=== PATIENT | male | born 1945 | race Caucasian/White ===

== ENCOUNTER 2016-12-03 18:18 | Inpatient (IN) | payer OTHER, MEDICARE ==
[2016-12-03] MEDS ORDERED: Sodium Chloride 0.9% 10 ML Syringe FLUSH PRN ×2 (19:17→23:26)
--- NOTE | 2016-12-03 19:19 | EDM.PDOC ---
ED HISTORY OF PRESENT ILLNESS - General Chief Complaint: Respiratory Problem Stated Complaint: [facility] Time Seen by Provider: 12/03/16 19:00 Source of Information: Reports: Family History Limitations: Reports: No limitations - History of Present Illness INITIAL COMMENTS - FREE TEXT/NARRATIVE: Patient presents via the [facility] for evaluation and treatment of shortness of breath. Patient does not provide any history. History is provided by his son and . They report that he has been more lethargic than normal. Today they noticed gargling and wheezing. He states that his oxygen sats at home was 73%. He is prescribed oxygen at home and instructed to use 1 L when he is up and active. They state that he normally is on 1 L at all times. They feel that the shortness of breath and gurgling increases when he lays flat. They have been encouraging him to sit and sleep in a chair, however, he does not comfortable and will lay flat. denies any fevers. They report that he has been complaining of some nausea and vomits occasionally after eating. He states that he did have some breakfast today but not much more intake besides that. He has not been responding normally per his family. patient has a past medical history of chronic kidney disease and liver failure. Family reports that he has a diagnosis of congestive heart failure. He receives Lasix on a necessary basis when his edema has increased. They did give him one dose of Lasix earlier this week. Patient sees and Dr. Vela for his liver and kidney failure. He has a voiced that he does not want dialysis. He is a DO NOT RESUSCITATE, DO NOT INTUBATE. Patient did have an influenza and pneumonia vaccine this year. Patient's primary care provider is Dr. Lopes. He is scheduled to see him on Sunday. - Related Data Allergies/ADRs: Allergies Allergy/AdvReac Type Severity Reaction Status Date / Time metronidazole Allergy Unknown Hives Verified 12/03/16 18:27 wool Allergy Unknown Itching Uncoded 07/26/16 15:31 Home Meds: Home Meds Furosemide [Lasix] 80 mg PO DAILY PRN 09/11/14 [History] LORazepam [Ativan] 0.5 mg PO BEDTIME 09/11/14 [History] Pantoprazole [Protonix] 40 mg PO DAILY 09/11/14 [History] Fluticasone Propionate [Flonase] 2 spray NS DAILY PRN 12/10/14 [History] Insulin Glarg,Human.Rec.Analog [Lantus] 10 unit SUBCUT BEDTIME 12/10/14 [History ] Potassium Chloride 20 meq PO DAILY 12/10/14 [History] Insulin Aspart [NovoLOG] 12 units SUBCUT TIDAC 04/15/15 [History] Lactulose [Cephulac] 45 ml PO TID 04/15/15 [History] Rifaximin [Xifaxan] 550 mg PO BID 04/15/15 [History] Salsalate 500 mg PO ASDIRECTED PRN 04/15/15 [History] Sertraline HCl 50 mg PO DAILY 04/15/15 [History] Ranitidine [Zantac] 150 mg PO BEDTIME 11/06/15 [History] Ferrous Sulfate 325 mg PO TID 12/03/16 [History] Ondansetron [IJD: Ondansetron ODT] 4 mg PO .EVERY 6 HOURS PRN 12/03/16 [History] hydrALAZINE [Apresoline] 25 mg PO Q12HR 12/03/16 [History] Past Medical History HEENT History: Reports: Hard of hearing Cardiovascular History: Reports: Heart murmur Respiratory History: Reports: Sleep apnea Gastrointestinal History: Reports: Cirrhosis, GERD, Other (see below) Other Gastrointestinal History: non-alcholic cirrhosis Genitourinary History: Reports: BPH, Chronic renal insuffiency, Renal calculus, Urinary incontinence Other Genitourinary History: kidney stones Other Musculoskeletal History: Broke both ankles previously Neurological History: Reports: Speech problems Psychiatric History: Reports: Anxiety, Depression Endocrine/Metabolic History: Reports: Diabetes, type II, Obesity/BMI 30+ Hematologic History: Reports: Anemia, Blood transfusion(s) Other Hematologic History: low hemoglobin, Dermatologic History: Reports: Other (see below) Other Dermatologic History: Nose and arm spots that were removed - Infectious Disease History Infectious Disease History: Reports: Chicken pox, Influenza - Past Surgical History HEENT Surgical History: Reports: Cataract surgery, Tonsillectomy GI Surgical History: Reports: Appendectomy, EGD Social & Family History - Family History Cardiac: Reports: Heart failure Respiratory: Reports: Other (see below) Other Respiratory Family Hisory: emphysema : Reports: Other (see below) Other Family History: kidney stones OBGYN: Reports: Psychiatric: Reports: Schizophrenia Endocrine/Metabolic: Reports: Diabetes, type II Oncologic: Reports: Breast Other Oncologic Family History: mother of breast cancer, aunts with cancer - Tobacco Use Smoking Status *Q: Never Smoker Second Hand Smoke Exposure: No - Caffeine Use Caffeine Use: Reports: Soda Other Caffeine Use: seldom - Alcohol Use Days Per Week of Alcohol Use: 0 - Recreational Drug Use Recreational Drug Use: No - Living Situation & Occupation Living situation: Reports: , with spouse, with family (Son) Occupation: retired ED ROS GENERAL - Review of Systems Review Of Systems: See Below Constitutional: Denies: fever Respiratory: Reports: Shortness of Breath Cardiovascular: Reports: Edema, Orthopnea. Denies: Chest pain GI/Abdominal: Reports: Nausea, Vomiting. Denies: Abdominal pain ED EXAM, GENERAL - Physical Exam Exam: See Below Exam Limited By: No limitations General Appearance: WD/WN, no apparent distress, lethargic Respiratory/Chest: no respiratory distress, decreased breath sounds, crackles ( bilateral bases) Cardiovascular: normal peripheral pulses, regular rate, rhythm, no murmur GI/Abdominal: soft, non tender Psychiatric: normal affect, normal mood Skin Exam: Warm, Dry, Normal color Course - Vital Signs Last Recorded V/S: Last Vital Signs Temp 36.2 C 12/04/16 04:16 Pulse 95 12/04/16 04:16 Resp 22 H 12/04/16 04:16 BP 171/69 H 12/04/16 09:58 Pulse Ox 94 L 12/04/16 05:12 - Orders/Labs/Meds Orders: Active Orders 24 hr Category Date Time Status Cardiac Monitoring [RC] . DIRECTED Care 12/03/16 19:17 Active Peripheral IV Care [RC] Q2HR Care 12/03/16 19:18 Active Sodium Chloride 0.9% [Saline Flush] Med 12/03/16 19:17 Active 10 ml FLUSH ASDIRECTED PRN Peripheral IV Insertion Adult [OM.PC] Routine Oth 12/03/16 19:17 Ordered Medication Orders Acetaminophen (Tylenol) 650 mg PO Q4H PRN PRN Reason: Pain (Mild 1-3)/fever Acetaminophen/Hydrocodone Bitart (Kamrar 325-5 Mg) 1 tab PO Q4H PRN PRN Reason: Pain (moderate 4-6) Albuterol/Ipratropium (Duoneb 3.0-0.5 Mg/3 Ml) 3 ml NEB Q4H PRN PRN Reason: Shortness Of Breath/wheezing Last Admin: 12/04/16 05:11 Dose: 3 ml Bisacodyl (Dulcolax) 5 mg PO DAILY PRN PRN Reason: Constipation Famotidine (Pepcid) 20 mg PO BEDTIME [facility] Ferrous Sulfate (Ferrous Sulfate) 325 mg PO TID [facility] Last Admin: 12/04/16 09:58 Dose: 325 mg Flunisolide (Nasalide Nasal Floral) 0 ml NASBOTH Q12H [facility] Last Admin: 12/04/16 01:37 Dose: 1 spray Hydralazine HCl (Apresoline) 25 mg PO Q12HR [facility] Last Admin: 12/04/16 09:58 Dose: 25 mg Hydralazine HCl (Apresoline) 20 mg IVPUSH Q4H PRN PRN Reason: Hypertension Last Admin: 12/04/16 02:08 Dose: 20 mg Promethazine HCl 12.5 mg/ (Sodium Chloride) 50.5 mls @ 100 mls/hr IV Q6H PRN PRN Reason: Nausea/Vomiting Furosemide 100 mg/ Sodium (Chloride) 100 mls @ 1 mls/hr IV TITRATE [facility] PRN Reason: Protocol Last Admin: 12/04/16 01:34 Dose: 1 mls/hr Levofloxacin/Dextrose 500 mg/ (Premix) 100 mls @ 100 mls/hr IV Q48H [facility] Piperacillin Sod/Tazobactam (Sod 4.5 gm/ Sodium Chloride) 100 mls @ 25 mls/hr IV Q12H [facility] Insulin Aspart (Novolog) 12 unit SUBCUT TIDAC [facility] Last Admin: 12/04/16 13:33 Dose: Admin: 12/04/16 09:59 Dose: 12 units Insulin Detemir (Levemir) 12 unit SUBCUT BEDTIME [facility] Lactulose (Cephulac) 30 gm PO QID [facility] Last Admin: 12/04/16 09:58 Dose: 30 gm Lorazepam (Ativan) 0.5 mg IV Q6H PRN PRN Reason: Anxiety Magnesium Sulfate (Pharmacy To Dose - Magnesium Replacement) 1 dose .XX ASDIRECTED [facility] Metoprolol Tartrate (Lopressor) 5 mg IVPUSH Q4H PRN PRN Reason: Tachycardia Morphine Sulfate (Morphine) 1 mg IVPUSH Q4H PRN PRN Reason: Pain (severe 7-10) Stop: 12/07/16 23:26 Ondansetron HCl (Zofran) 4 mg IV Q6H PRN PRN Reason: Nausea/Vomiting Ondansetron HCl (Zofran Odt) 4 mg PO .EVERY 6 HOURS PRN PRN Reason: Nausea Pantoprazole Sodium (Protonix) 40 mg PO DAILY@0800 [facility] Last Admin: 12/04/16 09:59 Dose: 40 mg Potassium Chloride (Klor-Con M20) 20 meq PO DAILY [facility] Last Admin: 12/04/16 10:00 Dose: Admin: 12/04/16 01:37 Dose: 20 meq Potassium Chloride (Pharmacy To Dose - Potassium Replacement) 1 dose .XX ASDIRECTED [facility] Rifaximin (Xifaxan) 550 mg PO BID [facility] Last Admin: 12/04/16 10:00 Dose: 550 mg Salsalate (Disalcid) 500 mg PO ASDIRECTED PRN PRN Reason: Headache Senna/Docusate Sodium (Senna Plus) 1 tab PO BID PRN PRN Reason: Constipation Sertraline HCl (Zoloft) 50 mg PO DAILY [facility] Last Admin: 12/04/16 09:58 Dose: 50 mg Sodium Chloride (Saline Flush) 10 ml FLUSH ASDIRECTED PRN PRN Reason: Keep Vein Open Last Admin: 12/03/16 19:45 Dose: 10 ml Sodium Chloride (Saline Flush) 10 ml FLUSH ASDIRECTED PRN PRN Reason: Keep Vein Open Labs: Laboratory Tests 12/03/16 12/03/16 12/03/16 Range/Units 19:38 19:38 19:38 WBC 11.26 H (4.23-9.07) K/mm3 RBC 2.81 L (4.63-6.08) M/mm3 Hgb 8.2 L (13.7-17.5) gm/L Hct 25.4 L (40.1-51.0) % MCV 90.4 (79.0-92.2) fl MCH 29.2 (25.7-32.2) pg MCHC 32.3 (32.2-35.5) g/dl RDW Std Deviation 52.7 H (35.1-43.9) fL Plt Count 222 (163-337) K/mm3 MPV 8.8 L (9.4-12.3) fl Neutrophils % (Manual) 83 H (40-60) % Band Neutrophils % 0 (0-10) % Lymphocytes % (Manual) 11 L (20-40) % Atypical Lymphs % 0 % Monocytes % (Manual) 3 (2-10) % Eosinophils % (Manual) 2 (0.8-7.0) % Basophils % (Manual) 1 (0.2-1.2) Platelet Estimate Adequate Hypochromasia 1+ slight Poikilocytosis 1+ slight Anisocytosis 2+ moderate Ovalocytes 2+ moderate RBC Morph Comment Not Reportable Sodium 143 (136-145) mEq/L Potassium 4.7 (3.5-5.1) mEq/L Chloride 111 H (98-107) mEq/L Carbon Dioxide 22 (21-32) mEq/L Anion Gap 14.7 (5-15) BUN 52 H (7-18) mg/dL Creatinine 4.8 H (0.7-1.3) mg/dL Est Cr Clr Drug Dosing TNP Estimated GFR (MDRD) 12 (>60) mL/min BUN/Creatinine Ratio 10.8 L (14-18) Glucose 109 (80-115) mg/dL Calcium 8.4 L (8.5-10.1) mg/dL Magnesium 2.2 (1.8-2.4) mg/dl Total Bilirubin 1.4 H (0.2-1.0) mg/dL AST 134 H (15-37) U/L ALT 36 (16-63) U/L Alkaline Phosphatase 112 (46-116) U/L Ammonia (11-32) umol/L Troponin I 0.668 H* (0.00-0.056) ng/mL C-Reactive Protein 4.5 H* (<1.0) mg/dL B-Natriuretic Peptide 2391 H (0-100) pg/mL Total Protein 6.0 L (6.4-8.2) g/dl Albumin 2.0 L (3.4-5.0) g/dl Globulin 4.0 gm/dL Albumin/Globulin Ratio 0.5 L (1-2) Urine Color (Yellow) Urine Appearance (Clear) Urine pH (5.0-8.0) Ur Specific Guion (1.005-1.030) Urine Protein (Negative) Urine Glucose (UA) (Negative) Urine Ketones (Negative) Urine Occult Blood (Negative) Urine Nitrite (Negative) Urine Bilirubin (Negative) Urine Urobilinogen (0.2-1.0) Ur Leukocyte Esterase (Negative) Urine RBC (0-5) /hpf Urine WBC (0-5) /hpf Ur Epithelial Cells (0-5) /hpf Amorphous Sediment (NOT SEEN) /hpf Urine Bacteria (FEW) /hpf Hyaline Casts (0-5) /lpf Urine Mucus (FEW) /hpf 12/03/16 12/03/16 Range/Units 19:38 21:10 WBC (4.23-9.07) K/mm3 RBC (4.63-6.08) M/mm3 Hgb (13.7-17.5) gm/L Hct (40.1-51.0) % MCV (79.0-92.2) fl MCH (25.7-32.2) pg MCHC (32.2-35.5) g/dl RDW Std Deviation (35.1-43.9) fL Plt Count (163-337) K/mm3 MPV (9.4-12.3) fl Neutrophils % (Manual) (40-60) % Band Neutrophils % (0-10) % Lymphocytes % (Manual) (20-40) % Atypical Lymphs % % Monocytes % (Manual) (2-10) % Eosinophils % (Manual) (0.8-7.0) % Basophils % (Manual) (0.2-1.2) Platelet Estimate Hypochromasia Poikilocytosis Anisocytosis Ovalocytes RBC Morph Comment Sodium (136-145) mEq/L Potassium (3.5-5.1) mEq/L Chloride (98-107) mEq/L Carbon Dioxide (21-32) mEq/L Anion Gap (5-15) BUN (7-18) mg/dL Creatinine (0.7-1.3) mg/dL Est Cr Clr Drug Dosing Estimated GFR (MDRD) (>60) mL/min BUN/Creatinine Ratio (14-18) Glucose (80-115) mg/dL Calcium (8.5-10.1) mg/dL Magnesium (1.8-2.4) mg/dl Total Bilirubin (0.2-1.0) mg/dL AST (15-37) U/L ALT (16-63) U/L Alkaline Phosphatase (46-116) U/L Ammonia 31 (11-32) umol/L Troponin I (0.00-0.056) ng/mL C-Reactive Protein (<1.0) mg/dL B-Natriuretic Peptide (0-100) pg/mL Total Protein (6.4-8.2) g/dl Albumin (3.4-5.0) g/dl Globulin gm/dL Albumin/Globulin Ratio (1-2) Urine Color Yellow (Yellow) Urine Appearance Clear (Clear) Urine pH 5.0 (5.0-8.0) Ur Specific Guion 1.015 (1.005-1.030) Urine Protein 2+ H (Negative) Urine Glucose (UA) Negative (Negative) Urine Ketones Negative (Negative) Urine Occult Blood 3+ H (Negative) Urine Nitrite Negative (Negative) Urine Bilirubin Negative (Negative) Urine Urobilinogen 0.2 (0.2-1.0) Ur Leukocyte Esterase Negative (Negative) Urine RBC >100 H (0-5) /hpf Urine WBC 0-5 (0-5) /hpf Ur Epithelial Cells 0-5 (0-5) /hpf Amorphous Sediment Few H (NOT SEEN) /hpf Urine Bacteria Few (FEW) /hpf Hyaline Casts 5-10 H (0-5) /lpf Urine Mucus Few (FEW) /hpf Meds: Medications Generic Name Dose Route Start Last Admin Trade Name Litoq PRN Reason Stop Dose Admin Acetaminophen 650 mg 12/03/16 23:22 Tylenol PO Q4H PRN Pain (Mild 1-3)/fever Acetaminophen/Hydrocodone Bitart 1 tab 12/03/16 23:22 Kamrar 325-5 Mg PO Q4H PRN Pain (moderate 4-6) Albuterol/Ipratropium 3 ml 12/03/16 23:26 12/04/16 05:11 Duoneb 3.0-0.5 Mg/3 Ml NEB 3 ml Q4H PRN Administration Shortness Of Breath/wheezing Bisacodyl 5 mg 12/03/16 23:26 Dulcolax PO DAILY PRN Constipation Famotidine 20 mg 12/04/16 21:00 Pepcid PO BEDTIME [facility] Ferrous Sulfate 325 mg 12/04/16 09:00 12/04/16 09:58 Ferrous Sulfate PO 325 mg TID [facility] Administration Flunisolide 0 ml 12/03/16 23:45 12/04/16 01:37 Nasalide Nasal Floral NASBOTH 1 spray Q12H BLADIMIR Administration Hydralazine HCl 25 mg 12/04/16 09:00 12/04/16 09:58 Apresoline PO 25 mg Q12HR BLADIMIR Administration Hydralazine HCl 20 mg 12/03/16 23:31 12/04/16 02:08 Apresoline IVPUSH 20 mg Q4H PRN Administration Hypertension Promethazine HCl 12.5 mg/ 50.5 mls @ 100 mls/hr 12/03/16 23:26 Sodium Chloride IV Q6H PRN Nausea/Vomiting Furosemide 100 mg/ Sodium 100 mls @ 1 mls/hr 12/03/16 23:45 12/04/16 01:34 Chloride IV 1 mls/hr TITRATE BLADIMIR Administration Protocol Levofloxacin/Dextrose 500 mg/ 100 mls @ 100 mls/hr 12/05/16 21:00 Premix IV Q48H [facility] Piperacillin Sod/Tazobactam 100 mls @ 25 mls/hr 12/05/16 02:00 Sod 4.5 gm/ Sodium Chloride IV Q12H [facility] Insulin Aspart 12 unit 12/04/16 07:00 12/04/16 13:33 Novolog SUBCUT Not Given TIDAC [facility] Insulin Detemir 12 unit 12/04/16 21:00 Levemir SUBCUT BEDTIME [facility] Lactulose 30 gm 12/04/16 09:00 12/04/16 09:58 Cephulac PO 30 gm QID [facility] Administration Lorazepam 0.5 mg 12/03/16 23:26 Ativan IV Q6H PRN Anxiety Magnesium Sulfate 1 dose 12/03/16 23:45 Pharmacy To Dose - Magnesium Replacement .XX ASDIRECTED [facility] Metoprolol Tartrate 5 mg 12/03/16 23:31 Lopressor IVPUSH Q4H PRN Tachycardia Morphine Sulfate 1 mg 12/03/16 23:22 Morphine IVPUSH 12/07/16 23:26 Q4H PRN Pain (severe 7-10) Ondansetron HCl 4 mg 12/03/16 23:26 Zofran IV Q6H PRN Nausea/Vomiting Ondansetron HCl 4 mg 12/03/16 23:29 Zofran Odt PO .EVERY 6 HOURS PRN Nausea Pantoprazole Sodium 40 mg 12/04/16 08:00 12/04/16 09:59 Protonix PO 40 mg DAILY@0800 BLAD[facility]IR Administration Potassium Chloride 20 meq 12/03/16 23:45 12/04/16 10:00 Klor-Con M20 PO Not Given DAILY [facility] Potassium Chloride 1 dose 12/03/16 23:45 Pharmacy To Dose - Potassium Replacement .XX ASDIRECTED [facility]AD[facility] Rifaximin 550 mg 12/04/16 09:00 12/04/16 10:00 Xifaxan PO 550 mg BID BLADIMIR Administration Salsalate 500 mg 12/03/16 23:29 Disalcid PO ASDIRECTED PRN Headache Senna/Docusate Sodium 1 tab 12/03/16 23:26 Senna Plus PO BID PRN Constipation Sertraline HCl 50 mg 12/04/16 09:00 12/04/16 09:58 Zoloft PO 50 mg DAILY [facility]AD[facility] Administration Sodium Chloride 10 ml 12/03/16 19:17 12/03/16 19:45 Saline Flush FLUSH 10 ml ASDIRECTED PRN Administration Keep Vein Open Sodium Chloride 10 ml 12/03/16 23:26 Saline Flush FLUSH ASDIRECTED PRN Keep Vein Open Discontinued Medications Generic Name Dose Route Start Last Admin Trade Name Freq PRN Reason Stop Dose Admin Furosemide 40 mg 12/03/16 19:36 12/03/16 19:45 Lasix IVPUSH 12/03/16 19:37 40 mg NOW ONE Administration Levofloxacin/Dextrose 250 mg/ 50 mls @ 50 mls/hr 12/04/16 01:30 12/04/16 01: 35 Premix IV 12/04/16 02:29 50 mls/hr ONETIME ONE Administration Sodium Chloride Confirm 12/04/16 01:20 12/04/16 01:35 Normal Saline Administered 12/04/16 01:21 10 ml Dose Administration 250 mls @ as directed .ROUTE .STK-MED ONE Piperacillin Sod/Tazobactam 100 mls @ 200 mls/hr 12/04/16 13:00 Sod 4.5 gm/ Sodium Chloride IV 12/04/16 13:29 ONETIME ONE Piperacillin Sod/Tazobactam 100 mls @ 25 mls/hr 12/04/16 01:00 Sod 4.5 gm/ Sodium Chloride IV Q12H [facility]AD[facility] Lactulose 30 gm 12/04/16 09:00 Cephulac PO TID BLADIMIR - Re-Assessments/Exams Free Text/Narrative Re-Assessment/Exam: 12/03/16 21:00 The patient's lab studies have returned. Reviewed the EKG, chest x-ray and labs with the patient and his family. I feel that his symptoms are likely from exacerbation of his congestive heart failure. Given his hypoxia and increased need for oxygen I feel that he requires admission. I discussed this with the patient and his family. His family is in agreement here. His relates that he is a DO NOT RESUSCITATE, DO NOT INTUBATE and does not want dialysis. I spoke with Dr. Brown, hospitalist promotions producer, agrees to accept the patient. He agrees to the admission. Hill be sent to the [facility] floor on telemetry. Departure - Departure Time of Disposition: 21:40 Disposition: Admitted As Inpatient 67 Condition: serious Clinical Impression: Congestive heart failure - My Orders Last 24 Hours: My Active Orders 12/03/16 19:17 Cardiac Monitoring [RC] . DIRECTED Sodium Chloride 0.9% [Saline Flush] 10 ml FLUSH ASDIRECTED PRN Peripheral IV Insertion Adult [OM.PC] Routine 12/03/16 19:18 Peripheral IV Care [RC] Q2HR - Assessment/Plan Last 24 Hours: My Active Orders 12/03/16 19:17 Cardiac Monitoring [RC] . DIRECTED Sodium Chloride 0.9% [Saline Flush] 10 ml FLUSH ASDIRECTED PRN Peripheral IV Insertion Adult [OM.PC] Routine 12/03/16 19:18 Peripheral IV Care [RC] Q2HR
[2016-12-03] MEDS ORDERED: Furosemide 40 MG/4 ML VIAL IVPUSH ONE (19:36)
--- NOTE | 2016-12-03 23:14 | PCM.HP ---
H&P History of Present Illness - General Date of Service: 12/03/16 Admit Problem/Dx: Admission Diagnosis/Problem Admission Diagnosis/Problem Congestive heart failure Source of Information: Patient, Family, Old records, Provider, RN notes reviewed History Limitations: Reports: Altered mental status - History of Present Illness Initial Comments - Free Text/Narative: This is a 71 elderly white male with past medical hx/o DM2, GERD, CKD Stage 4-5 , DM2, HF with unknown EF, Anemia, BPH, Urinary Incontinence, Hx/o Esophageal Varices S/p Banding, Anxiety and Depression, Speech Problem, Hypoalbuminemia, ANDREIA on CPAP and Obesity who comes in with c/o reduced appetite, fatigue and generalized weakness for over a week now. He admits to increasing SOB with a wet sounding chest. Patient is known to me from previous admission related to his ESLD 2/ JOSUE. His most recent hospitalization was in August ([place], [place]). At that time, he was diagnosed with heart failure with unknown ejection fraction. His initial work up in ED shows a CBC remarkable for WBC 11.26, Hgb 8.2 Hct 25.4 and Neutrophils 83%. His chemistry is significant for Cl 111, BUN 52, Cr 4.8, BS 109, Total Bili 1.4, AST 134, troponin 0.668, CRP 4.5, Total Protein 6 and Albumin 2. His UA is not impressive for UTI. His CXR shows diffuse pulmonary congestion with pleural effusions. He is DNR/DNI. - Related Data Allergies/Adverse Reactions: Allergies Allergy/AdvReac Type Severity Reaction Status Date / Time metronidazole Allergy Unknown Hives Verified 12/03/16 18:27 wool Allergy Unknown Itching Uncoded 07/26/16 15:31 Home Medications: Home Meds Furosemide [Lasix] 80 mg PO DAILY PRN 09/11/14 [History] LORazepam [Ativan] 0.5 mg PO BEDTIME 09/11/14 [History] Pantoprazole [Protonix] 40 mg PO DAILY 09/11/14 [History] Fluticasone Propionate [Flonase] 2 spray NS DAILY PRN 12/10/14 [History] Insulin Glarg,Human.Rec.Analog [Lantus] 12 unit SUBCUT BEDTIME 12/10/14 [History ] Potassium Chloride 20 meq PO DAILY 12/10/14 [History] Insulin Aspart [NovoLOG] 12 units SUBCUT TIDAC 04/15/15 [History] Lactulose [Cephulac] 45 ml PO TID 04/15/15 [History] Rifaximin [Xifaxan] 550 mg PO BID 04/15/15 [History] Salsalate 500 mg PO ASDIRECTED PRN 04/15/15 [History] Sertraline HCl 50 mg PO DAILY 04/15/15 [History] Ranitidine [Zantac] 150 mg PO BEDTIME 11/06/15 [History] Ferrous Sulfate 325 mg PO TID 12/03/16 [History] Ondansetron [IJD: Ondansetron ODT] 4 mg PO .EVERY 6 HOURS PRN 12/03/16 [History] hydrALAZINE [Apresoline] 25 mg PO Q12HR 12/03/16 [History] Past Medical History HEENT History: Reports: Hard of hearing Cardiovascular History: Reports: Heart murmur Respiratory History: Reports: Sleep apnea Gastrointestinal History: Reports: Cirrhosis, GERD, Other (see below) Other Gastrointestinal History: non-alcholic cirrhosis Genitourinary History: Reports: BPH, Chronic renal insuffiency, Renal calculus, Urinary incontinence Other Genitourinary History: kidney stones Musculoskeletal History: Reports: Other (see below) Other Musculoskeletal History: Broke both ankles previously Neurological History: Reports: Speech problems Psychiatric History: Reports: Anxiety, Depression Endocrine/Metabolic History: Reports: Diabetes, type II, Obesity/BMI 30+ Hematologic History: Reports: Anemia, Blood transfusion(s) Other Hematologic History: low hemoglobin, Dermatologic History: Reports: Other (see below) Other Dermatologic History: Nose and arm spots that were removed - Infectious Disease History Infectious Disease History: Reports: Chicken pox, Influenza - Past Surgical History HEENT Surgical History: Reports: Cataract surgery, Tonsillectomy GI Surgical History: Reports: Appendectomy, EGD Social & Family History - Family History Cardiac: Reports: Heart failure Respiratory: Reports: Other (see below) Other Respiratory Family Hisory: emphysema : Reports: Other (see below) Other Family History: kidney stones OBGYN: Reports: Psychiatric: Reports: Schizophrenia Endocrine/Metabolic: Reports: Diabetes, type II Oncologic: Reports: Breast Other Oncologic Family History: mother of breast cancer, aunts with cancer - Tobacco Use Smoking Status *Q: Never Smoker Second Hand Smoke Exposure: No - Caffeine Use Caffeine Use: Reports: None Other Caffeine Use: seldom - Alcohol Use Days Per Week of Alcohol Use: 0 - Recreational Drug Use Recreational Drug Use: No - Living Situation & Occupation Living situation: Reports: , with spouse, with family (Son) Occupation: retired H&P Review of Systems - Review of Systems: Review Of Systems: See Below General: Reports: malaise, weakness, decreased appetite. Denies: fever, chills , fatigue HEENT: Denies: contact lenses Pulmonary: Reports: Shortness of Breath. Denies: Cough Cardiovascular: Denies: chest pain, dyspnea on exertion, edema Gastrointestinal: Reports: Diarrhea. Denies: Abdominal pain, Nausea, Vomiting Genitourinary: Reports: no symptoms Musculoskeletal: Reports: no symptoms Skin: Denies: jaundice, rash, erythema Psychiatric: Denies: depression, anxiety, hallucinations Neurological: Reports: Confusion, Weakness. Denies: Dizziness, Seizure Hematologic/Lymphatic: Reports: no symptoms Immunologic: Reports: no symptoms Exam - Exam Exam: See Below - Vital Signs Vital Signs: Last Vital Signs Temp 36.3 C 12/03/16 18:24 Pulse 93 12/03/16 18:24 Resp 22 H 12/03/16 18:24 BP 149/72 H 12/03/16 18:24 Pulse Ox 98 12/03/16 18:24 Weight: 120.202 kg - Exam General: alert, other (Obese). No: oriented, mild distress HEENT: Conjunctiva clear, EOMI, Hearing intact, Mucosa moist & pink, Nares patent, Normal nasal septum, Posterior pharynx clear, PERRLA Neck: supple, trachea midline, 2+ carotid pulse wo bruit, full range of motion, other (short and thick). No: JVD Lungs: Normal respiratory effort, Decreased breath sounds, Crackles Cardiovascular: regular rate, regular rhythm, systolic murmur Abdomen: normal bowel sounds, soft, other (Obese). No: organomegaly (Male) Exam: Deferred Rectal (Males) Exam: Deferred Back Exam: normal inspection, decreased range of motion Extremities: normal inspection, normal pulses. No: clubbing, cyanosis, calf tenderness, edema Peripheral Pulses: 2+: dorsalis pedis (L), dorsalis pedis (R) Skin: warm, dry, intact Neuro Extensive - Mental Status: inattentive, slow response to commands. No: oriented x3, normal cognition, memory intact Neuro Extensive - Motor, Sensory, Reflexes: abnormal gait. No: CN II-XII intact (limited due to altered mentation) Psychiatric: alert. No: normal affect, normal mood, homicidal ideation, hallucinations Physical Exam Comments:: Physical exam is limited by his confusion. He has no asterixis. - Patient Data Result Diagrams: 12/03/16 19:38 12/03/16 19:38 *Q Meaningful Use (ADM) - VTE *Q VTE Criteria *Q: - Stroke *Q Stroke Criteria *Q: - AMI *Q AMI Criteria *Q: Problem List Initiated/Reviewed/Updated: Yes Orders Last 24hrs: Medication Orders Sodium Chloride (Saline Flush) 10 ml FLUSH ASDIRECTED PRN PRN Reason: Keep Vein Open Last Admin: 12/03/16 19:45 Dose: 10 ml Assessment/Plan Comment:: Assessment/Plan: Acute: Hepatic Encephalopathy - Awake but no alert, Ox3 negative - No Asterixis - Ammonia 31 - Continue Lactulose and Xafaxan - Will increase lactulose from TID to QID until bowel movement - Aspiration Precaution Acute Congestive Heart Failure - Likely induced but ESLD - Diagnosed recently in [place] - Will obtained 2D - Lasix drip with low rate due reduced renal functional - HF protocol: salt/fluid restrictions, daily weights, Is/Os B/L Pleural Effusions - Lasix drip at low rate - Supplemental O2 - CT scan in AM w/o contrast - Possible therapeutic thoracentesis - Will start IV Levaquin, he has atelectasis Generalized Weakness - 2/2 to above - PT/OT consult Reduced Appetite - Likely from above - Expect to improve once metabolic derangement improves Elevated Troponin Level - This chronic, likely from CKD and LV Strain from pulmonary congestion - We will not trend or monitor Chronic: DM2 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
[2016-12-03] MEDS ORDERED: Acetaminophen 325 MG Tab PO PRN (23:22)
[2016-12-03] MEDS ORDERED: Acetaminophen/HYDROcodone 325-5 MG Tab PO PRN (23:22)
[2016-12-03] MEDS ORDERED: Morphine 2 MG/ML Syringe IVPUSH PRN (23:22)
[2016-12-03] MEDS ORDERED: LORazepam 2 MG/ML MDV IV PRN (23:26)
[2016-12-03] MEDS ORDERED: Promethazine 12.5 MG in Sodium Chloride 0.9% 50 ML IV PRN (23:26)
[2016-12-03] MEDS ORDERED: Ondansetron 4 MG/2 ML SDV IV PRN (23:26)
[2016-12-03] MEDS ORDERED: Bisacodyl 5 MG Tab PO PRN (23:26)
[2016-12-03] MEDS ORDERED: Albuterol/Ipratropium 3.0-0.5 MG/3 ML Neb Soln NEB PRN (23:26)
[2016-12-03] MEDS ORDERED: Ondansetron 4 MG Tab.DIS PO PRN (23:29)
[2016-12-03] MEDS ORDERED: Metoprolol Tartrate 5 MG/5 ML SDV IVPUSH PRN (23:31)
[2016-12-03] MEDS ORDERED: Furosemide 100 MG in Sodium Chloride 0.9% 90 ML IV SCH (23:45)
[2016-12-04] MEDS ORDERED: Sodium Chloride 0.9% 250 ML ONE (01:20)
[2016-12-04] MEDS ORDERED: Levofloxacin/Dextrose 5%-Water 250 MG in Premix Bag 1 BAG IV ONE (01:30)
[2016-12-04] MEDS: Potassium Chloride 20 MEQ Tab.ER PO SCH ×2 (01:37→10:00)
[2016-12-04] MEDS: hydrALAZINE 20 MG/ML SDV IVPUSH PRN ×2 (02:08→15:44)
[2016-12-04] MEDS ORDERED: Lactulose Soln 10 GM/15 ML 30 ML UD Cup PO SCH (09:00)
--- NOTE | 2016-12-04 09:23 | PCM.PN ---
- General Info Date of Service: 12/04/16 Admission Dx/Problem (Free Text): Admission Diagnosis/Problem Admission Diagnosis/Problem Congestive heart failure Subjective Update: Follow up Functional Status: Reports: pain controlled, tolerating diet, urinating. Denies : new symptoms - Review of Systems General: Reports: Weakness. Denies: Fever, Fatigue, Chills HEENT: Reports: no symptoms Pulmonary: Reports: shortness of breath Cardiovascular: Denies: Chest Pain, Dyspnea on Exertion, Lightheadedness Gastrointestinal: Denies: Abdominal pain, Nausea, Vomiting Genitourinary: Reports: no symptoms Musculoskeletal: Reports: no symptoms Skin: Reports: no symptoms Neurological: Reports: Confusion, Weakness, Gait Disturbance. Denies: Difficulty Walking Psychiatric: Denies: depression, anxiety, hallucinations Systems Review Comment:: No overnight or acute issues. He is doing okay. He is afebrile with mild leukocytosis. Hgb is stable at 8.4, CRP is 5 and Cr remains stable at 4.8. His NH4 is slight up at 59 and albumin is 1.9. - Patient Data Vitals - most recent: Last Vital Signs Temp 36.2 C 12/04/16 04:16 Pulse 95 12/04/16 04:16 Resp 22 H 12/04/16 04:16 BP 152/86 H 12/04/16 04:16 Pulse Ox 94 L 12/04/16 05:12 Weight - most recent: 116.936 kg I&O - last 24 hours: Intake & Output 12/03/16 12/04/16 12/04/16 22:59 06:59 14:59 Intake Total 100 Output Total 200 Balance -100 Lab Results last 24 hrs: Laboratory Results - last 24 hr 12/04/16 12/04/16 12/04/16 Range/Units 04:15 04:15 04:15 WBC 11.34 H (4.23-9.07) K/mm3 RBC 2.85 L (4.63-6.08) M/mm3 Hgb 8.4 L (13.7-17.5) gm/L Hct 25.8 L (40.1-51.0) % MCV 90.5 (79.0-92.2) fl MCH 29.5 (25.7-32.2) pg MCHC 32.6 (32.2-35.5) g/dl RDW Std Deviation 52.2 H (35.1-43.9) fL Plt Count 220 (163-337) K/mm3 MPV 9.1 L (9.4-12.3) fl Neut % (Auto) 78.0 H (34.0-67.9) % Lymph % (Auto) 6.7 L (21.8-53.1) % [place] % (Auto) 13.2 H (5.3-12.2) % Eos % (Auto) 1.1 (0.8-7.0) Baso % (Auto) 0.7 (0.1-1.2) % Neut # 8.85 H (1.78-5.38) K/mm3 Lymph # 0.76 L (1.32-3.57) K/mm3 [place] # 1.50 H (0.30-0.82) K/mm3 Eos # 0.12 (0.04-0.54) K/mm3 Baso # 0.08 (0.01-0.08) K/mm3 Manual Slide Review Abnormal smear Sodium 143 (136-145) mEq/L Potassium 4.7 (3.5-5.1) mEq/L Chloride 112 H (98-107) mEq/L Carbon Dioxide 21 (21-32) mEq/L Anion Gap 14.7 (5-15) BUN 54 H (7-18) mg/dL Creatinine 4.8 H (0.7-1.3) mg/dL Est Cr Clr Drug Dosing TNP Estimated GFR (MDRD) 12 (>60) mL/min BUN/Creatinine Ratio 11.3 L (14-18) Glucose 110 (80-115) mg/dL POC Glucose (80-115) mg/dL Calcium 8.2 L (8.5-10.1) mg/dL Magnesium 2.1 (1.8-2.4) mg/dl Total Bilirubin 1.6 H (0.2-1.0) mg/dL AST 170 H (15-37) U/L ALT 38 (16-63) U/L Alkaline Phosphatase 108 (46-116) U/L Ammonia 59 H (11-32) umol/L C-Reactive Protein 5.0 H* (<1.0) mg/dL Total Protein 5.9 L (6.4-8.2) g/dl Albumin 1.9 L (3.4-5.0) g/dl Globulin 4.0 gm/dL Albumin/Globulin Ratio 0.5 L (1-2) 12/04/16 Range/Units 06:02 WBC (4.23-9.07) K/mm3 RBC (4.63-6.08) M/mm3 Hgb (13.7-17.5) gm/L Hct (40.1-51.0) % MCV (79.0-92.2) fl MCH (25.7-32.2) pg MCHC (32.2-35.5) g/dl RDW Std Deviation (35.1-43.9) fL Plt Count (163-337) K/mm3 MPV (9.4-12.3) fl Neut % (Auto) (34.0-67.9) % Lymph % (Auto) (21.8-53.1) % [place] % (Auto) (5.3-12.2) % Eos % (Auto) (0.8-7.0) Baso % (Auto) (0.1-1.2) % Neut # (1.78-5.38) K/mm3 Lymph # (1.32-3.57) K/mm3 [place] # (0.30-0.82) K/mm3 Eos # (0.04-0.54) K/mm3 Baso # (0.01-0.08) K/mm3 Manual Slide Review Sodium (136-145) mEq/L Potassium (3.5-5.1) mEq/L Chloride (98-107) mEq/L Carbon Dioxide (21-32) mEq/L Anion Gap (5-15) BUN (7-18) mg/dL Creatinine (0.7-1.3) mg/dL Est Cr Clr Drug Dosing Estimated GFR (MDRD) (>60) mL/min BUN/Creatinine Ratio (14-18) Glucose (80-115) mg/dL POC Glucose 115 (80-115) mg/dL Calcium (8.5-10.1) mg/dL Magnesium (1.8-2.4) mg/dl Total Bilirubin (0.2-1.0) mg/dL AST (15-37) U/L ALT (16-63) U/L Alkaline Phosphatase (46-116) U/L Ammonia (11-32) umol/L C-Reactive Protein (<1.0) mg/dL Total Protein (6.4-8.2) g/dl Albumin (3.4-5.0) g/dl Globulin gm/dL Albumin/Globulin Ratio (1-2) Med Orders - Current: Current Medications Acetaminophen (Tylenol) 650 mg PO Q4H PRN PRN Reason: Pain (Mild 1-3)/fever Acetaminophen/Hydrocodone Bitart ([place] 325-5 Mg) 1 tab PO Q4H PRN PRN Reason: Pain (moderate 4-6) Albuterol/Ipratropium (Duoneb 3.0-0.5 Mg/3 Ml) 3 ml NEB Q4H PRN PRN Reason: Shortness Of Breath/wheezing Last Admin: 12/04/16 05:11 Dose: 3 ml Bisacodyl (Dulcolax) 5 mg PO DAILY PRN PRN Reason: Constipation Famotidine (Pepcid) 20 mg PO BEDTIME BLADIMIR Ferrous Sulfate (Ferrous Sulfate) 325 mg PO TID BLADIMIR Flunisolide (Nasalide Nasal [place]) 0 ml NASBOTH Q12H BLADIMIR Last Admin: 12/04/16 01:37 Dose: 1 spray Hydralazine HCl (Apresoline) 25 mg PO Q12HR BLADIMIR Hydralazine HCl (Apresoline) 20 mg IVPUSH Q4H PRN PRN Reason: Hypertension Last Admin: 12/04/16 02:08 Dose: 20 mg Promethazine HCl 12.5 mg/ (Sodium Chloride) 50.5 mls @ 100 mls/hr IV Q6H PRN PRN Reason: Nausea/Vomiting Furosemide 100 mg/ Sodium (Chloride) 100 mls @ 1 mls/hr IV TITRATE BLADIMIR PRN Reason: Protocol Last Admin: 12/04/16 01:34 Dose: 1 mls/hr Levofloxacin/Dextrose 500 mg/ (Premix) 100 mls @ 100 mls/hr IV Q48H [facility] Insulin Aspart (Novolog) 12 unit SUBCUT TIDAC BLADIMIR Insulin Detemir (Levemir) 12 unit SUBCUT BEDTIME [facility] Lactulose (Cephulac) 30 gm PO QID BLADIMIR Lorazepam (Ativan) 0.5 mg IV Q6H PRN PRN Reason: Anxiety Magnesium Sulfate (Pharmacy To Dose - Magnesium Replacement) 1 dose .XX ASDIRECTED [facility] Metoprolol Tartrate (Lopressor) 5 mg IVPUSH Q4H PRN PRN Reason: Tachycardia Morphine Sulfate (Morphine) 1 mg IVPUSH Q4H PRN PRN Reason: Pain (severe 7-10) Stop: 12/07/16 23:26 Ondansetron HCl (Zofran) 4 mg IV Q6H PRN PRN Reason: Nausea/Vomiting Ondansetron HCl (Zofran Odt) 4 mg PO .EVERY 6 HOURS PRN PRN Reason: Nausea Pantoprazole Sodium (Protonix) 40 mg PO DAILY@0800 [facility] Potassium Chloride (Klor-Con M20) 20 meq PO DAILY [facility] Last Admin: 12/04/16 01:37 Dose: 20 meq Potassium Chloride (Pharmacy To Dose - Potassium Replacement) 1 dose .XX ASDIRECTED [facility] Rifaximin (Xifaxan) 550 mg PO BID [facility] Salsalate (Disalcid) 500 mg PO ASDIRECTED PRN PRN Reason: Headache Senna/Docusate Sodium (Senna Plus) 1 tab PO BID PRN PRN Reason: Constipation Sertraline HCl (Zoloft) 50 mg PO DAILY [facility] Sodium Chloride (Saline Flush) 10 ml FLUSH ASDIRECTED PRN PRN Reason: Keep Vein Open Last Admin: 12/03/16 19:45 Dose: 10 ml Sodium Chloride (Saline Flush) 10 ml FLUSH ASDIRECTED PRN PRN Reason: Keep Vein Open Discontinued Medications Furosemide (Lasix) 40 mg IVPUSH NOW ONE Stop: 12/03/16 19:37 Last Admin: 12/03/16 19:45 Dose: 40 mg Levofloxacin/Dextrose 250 mg/ (Premix) 50 mls @ 50 mls/hr IV ONETIME ONE Stop: 12/04/16 02:29 Last Admin: 12/04/16 01:35 Dose: 50 mls/hr Sodium Chloride (Normal Saline) Confirm Administered Dose 250 mls @ as directed .ROUTE .STK-MED ONE Stop: 12/04/16 01:21 Last Admin: 12/04/16 01:35 Dose: 10 ml Lactulose (Cephulac) 30 gm PO TID BLADIMIR - Exam Quality Assessment: supplemental oxygen General: alert, cooperative, no acute distress, other (Obese) HEENT: Pupils equal, Pupils reactive, Mucous membr. moist/pink Neck: supple, trachea midline, no JVD, no thyromegaly, other (short and thick) Lungs: Normal respiratory effort, Decreased breath sounds, Rales Cardiovascular: Regular Rate, Regular Rhythm, Murmurs Abdomen: bowel sounds present, soft, no tenderness, no distension, other (Obese) (Male) Exam: Other (indwelling painting catheter) Back Exam: normal inspection, decreased range of motion Extremities: normal pulses, no tenderness/swelling, no clubbing, no cyanosis, no calf tenderness, edema (trace) Peripheral Pulses: 2+: dorsalis pedis (L), dorsalis pedis (R) Skin: warm, dry, intact Neurological: no new focal deficit. No: normal gait Psy/Mental Status: alert, normal affect - Problem List Review Problem List Initiated/Reviewed/Updated: Yes - My Orders Last 24 Hours: My Active Orders 12/03/16 23:16 Ambulate [RC] ASDIRECTED Height and Weight [RC] 04 Intake and Output [RC] 04,16 Oxygen Therapy [RC] PRN Up ad Jennifer [RC] ASDIRECTED VTE/DVT Education [RC] PER UNIT ROUTINE Vital Signs [RC] Q4H Sequential Compression Device [OM.PC] Per Unit Routine Resuscitation Status Routine 12/03/16 23:22 Acetaminophen [Tylenol] 650 mg PO Q4H PRN Acetaminophen/HYDROcodone [[place] 325-5 MG] 1 tab PO Q4H PRN Morphine 1 mg IVPUSH Q4H PRN Saline Lock Insert [OM.PC] Routine 12/03/16 23:26 Antiembolic Devices [RC] PER UNIT ROUTINE Albuterol/Ipratropium [DuoNeb 3.0-0.5 MG/3 ML] 3 ml NEB Q4H PRN Bisacodyl [Dulcolax] 5 mg PO DAILY PRN Docusate Sodium/Sennosides [Senna Plus] 1 tab PO BID PRN LORazepam [Ativan] 0.5 mg IV Q6H PRN Ondansetron [Zofran] 4 mg IV Q6H PRN Promethazine [Phenergan] 12.5 mg Sodium Chloride 0.9% [Normal Saline] 50 ml IV Q6H Sodium Chloride 0.9% [Saline Flush] 10 ml FLUSH ASDIRECTED PRN 12/03/16 23:27 RT Aerosol Therapy [RC] ASDIRECTED Consult to Case Management [CONS] Routine Consult to Food And Beverage Cashier [CONS] Routine Consult to Spiritual Care [CONS] Routine OT Evaluation and Treatment [CONS] Routine PT Evaluation and Treatment [CONS] Routine Respiratory Care Assess and Treatment [CONS] Routine 12/03/16 23:29 Ondansetron [Zofran ODT] 4 mg PO .EVERY 6 HOURS PRN Salsalate [Disalcid] 500 mg PO ASDIRECTED PRN 12/03/16 23:31 Metoprolol Tartrate [Lopressor] 5 mg IVPUSH Q4H PRN hydrALAZINE [Apresoline] 20 mg IVPUSH Q4H PRN 12/03/16 23:33 Urinary Catheter Assessment [RC] ASDIRECTED Precautions [COMM] Routine 12/03/16 23:45 Painting Catheter Insertion [Insert Urinary Catheter] [OM.PC] Q24H Flunisolide [Nasalide Nasal [place]] 0 ml NASBOTH Q12H Furosemide [Lasix] 100 mg Sodium Chloride 0.9% [Normal Saline] 90 ml IV TITRATE Magnesium Rep Pharmacy to Dose [Pharmacy to Dose - Magnesium Replacement] 1 dose .XX ASDIRECTED Potassium Chloride [Klor-Con M20] 20 meq PO DAILY Potassium Rep Pharmacy to Dose [Pharmacy to Dose - Potassium Replacement] 1 dose .XX ASDIRECTED 12/03/16 Dinner 2 Gram Sodium Diet [DIET] Consistent Carbohydrate Diet [DIET] 12/04/16 07:00 Chest wo Cont [CT] Routine Insulin Aspart [NovoLOG] 12 unit SUBCUT TIDAC 12/04/16 08:00 Pantoprazole [Protonix] 40 mg PO DAILY@0800 12/04/16 09:00 Ferrous Sulfate 325 mg PO TID Lactulose [Cephulac] 30 gm PO QID Rifaximin [Xifaxan] 550 mg PO BID Sertraline [Zoloft] 50 mg PO DAILY hydrALAZINE [Apresoline] 25 mg PO Q12HR 12/04/16 21:00 Famotidine [Pepcid] 20 mg PO BEDTIME Insulin Detemir [Levemir] 12 unit SUBCUT BEDTIME 12/05/16 05:11 Chest 2V [CR] AM CBC WITH AUTO DIFF [HEME] AM COMPREHENSIVE METABOLIC PN,CMP [CHEM] AM MAGNESIUM [CHEM] AM 12/05/16 21:00 Levofloxacin/Dextrose 5%-Water [Levaquin in D5W 500 MG/100 ML] 500 mg Premix Bag 1 bag IV Q48H 12/06/16 05:11 CBC WITH AUTO DIFF [HEME] AM COMPREHENSIVE METABOLIC PN,CMP [CHEM] AM MAGNESIUM [CHEM] AM 12/07/16 05:11 CBC WITH AUTO DIFF [HEME] AM COMPREHENSIVE METABOLIC PN,CMP [CHEM] AM MAGNESIUM [CHEM] AM 12/08/16 05:11 CBC WITH AUTO DIFF [HEME] AM - Plan Plan:: Assessment/Plan: Acute: Multi-focal PNA - Patchy areas of alveolar density within both upper lungs/Areas of consolidation within both lower lungs - On IV Levaquin; will add Zosyn IV for pharmacy to renally dose - Incentive spirometry as directed Hepatic Encephalopathy - Awake but no alert, Ox3 negative - No Asterixis - Ammonia 31 ---> 59 - Continue Lactulose and Xafaxan - Continue Lactulose from TID to QID until bowel movement - Aspiration Precaution Acute Congestive Heart Failure - Likely induced but ESLD - Diagnosed recently in [place] - 2D Echo to obtain from [place] - Continue Lasix drip at low rate due reduced renal functional - HF protocol: salt/fluid restrictions, daily weights, Is/Os B/L Pleural Effusions S/p Thoracentesis - Lasix drip at low rate of 3 mls/hr - Supplemental O2 - CT scan: Small-Moderate Size R>L - Diagnostic and Therapeutic thoracentesis - 1050 ml of pleural fluid removed Generalized Weakness - 2/2 above - Continue PT/OT Reduced Appetite - Likely from above - Expect to improve once metabolic derangement improves Resolved: S/p Elevated Troponin Level - This chronic, likely from CKD and LV Strain from pulmonary congestion - We will not trend or monitor Chronic: DM2 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
[2016-12-04] MEDS: Ferrous Sulfate 325 MG Tab PO SCH ×3 (09:58→22:08)
[2016-12-04] MEDS: Lactulose Soln 10 GM/15 ML 30 ML UD Cup PO SCH ×4 (09:58→22:09)
[2016-12-04] MEDS: Sertraline 50 MG Tab PO SCH (09:58)
[2016-12-04] MEDS: hydrALAZINE 25 MG Tab PO SCH ×2 (09:58→22:08)
[2016-12-04] MEDS: Pantoprazole 40 MG Tab.CR PO SCH (09:59)
[2016-12-04] MEDS: Insulin Aspart 100 Units/ML 3 ML Pen SUBCUT SCH ×3 (09:59→18:58)
[2016-12-04] MEDS: Rifaximin 550 MG Tab PO SCH ×2 (10:00→22:17)
--- NOTE | 2016-12-04 10:29 | CT ---
CT chest Technique: Multiple axial sections were obtained through the chest. Intravenous and oral contrast was not utilized. Comparison: Previous chest x-ray performed on 12/03/16. Small to moderate sized right-sided pleural effusion is seen probably having some loculations. Very minimal left-sided pleural effusion is noted. Consolidation noted within areas of both lower lungs with differential including atelectasis as well as areas of pneumonia. Stent noted within the liver which is stable. Heart is enlarged. Coronary artery calcification is seen. Mild gynecomastia noted on both sides. Areas of increased density are also seen within both upper lungs with differential including irregular areas of pulmonary edema versus pneumonia. Bone window settings were reviewed which show diffuse degenerative endplate spurring throughout the spine. Diffuse disc space narrowing noted within the lower thoracic spine. Impression: 1. Patchy areas of alveolar density within both upper lungs raising the possibility of irregular areas of pulmonary edema versus multifocal pneumonia. 2. Small to moderate size right-sided pleural effusion showing some loculations. Minimal left-sided pleural effusion is seen. 3. Areas of consolidation within both lower lungs with differential including round atelectasis versus pneumonia. 4. Other incidental findings. Diagnostic code #3
--- NOTE | 2016-12-04 10:31 | CR ---
Chest: Portable view of the chest was obtained. Comparison: Previous chest x-ray of 08/02/16. Pulmonary vessels appear to be somewhat congested. Right-sided pleural effusion is seen. Increased density noted within both lung bases presumably due to atelectasis. Heart is enlarged. Impression: 1. Stable cardiomegaly. Increased pulmonary vascular congestion from prior study. 2. Increased density within both lung bases most likely due to atelectasis. 3. Right-sided pleural effusion is present. Diagnostic code #3
[2016-12-04] MEDS ORDERED: Piperacillin/Tazobactam 4.5 GM in Sodium Chloride 0.9% 100 ML IV ONE (13:00)
--- NOTE | 2016-12-04 13:25 | PCM.PRNOTE ---
- Free Text/Narrative Note: DATE OF PROCEDURE: 12/04/2016 PREOPERATIVE DIAGNOSIS: Left Sided Pleural Effusion POSTOPERATIVE DIAGNOSIS: Left Sided Pleural Effusion PROCEDURE PERFORMED: Therapeutic and Diagnostic U/S Guided Right Sided Thoracentesis DESCRIPTION OF PROCEDURE: Informed consent was obtained. The patient was in his room seated in an upright position. The left posterior chest was marked and localized using ultrasound. Chlorhexidine was used to prep the skin in the usual sterile fashion. Ten mL of 1% Xylocaine was used to infiltrate the skin and soft tissue. Subsequently, an 18 gauge drainage catheter was introduced over the rib in the pleural space, and free flowing clear, hemorrhagic-colored pleural fluid was easily aspirated. The catheter was advanced and the needle removed. The catheter was hooked through a stopcock and opened to vacutainer suction. A total of 1050 mL of pleural fluid was easily drained. The flow was spontaneously ceased. The catheter was removed and procedure terminated. Studies were sent to the lab. The patient tolerated the procedure well. Post thoracentesis chest x-ray ordered. ESTIMATED BLOOD LOSS: Minimal COMPLICATIONS: None
--- NOTE | 2016-12-04 16:05 | CR ---
Chest: Portable view of the chest was obtained. Comparison: Previous chest x-ray of 12/03/16. Decreased right-sided pleural effusion is seen from prior exam. Pulmonary vessels are slightly congested but appear less prominent. Heart is enlarged. Areas of atelectasis seen within both lungs. No pneumothorax is seen. Impression: 1. Decreased right-sided pleural effusion. Slightly decreased pulmonary vascular congestion is seen. 2. Continued areas of atelectasis within both lungs. No pneumothorax. Diagnostic code #2
[2016-12-04] MEDS: Famotidine 20 MG Tab PO SCH (22:08)
[2016-12-04] MEDS: Insulin Detemir 100 Units/ML 3 ML Pen SUBCUT SCH (22:10)
[2016-12-04] MEDS: Piperacillin/Tazobactam 4.5 GM in Sodium Chloride 0.9% 100 ML IV SCH (22:21)
[2016-12-04] MEDS ORDERED: Sodium Chloride 0.9% 250 ML IV SCH (22:30)
[2016-12-05] MEDS: Piperacillin/Tazobactam 4.5 GM in Sodium Chloride 0.9% 100 ML IV SCH ×2 (01:59→13:34)
[2016-12-05] MEDS: Insulin Aspart 100 Units/ML 3 ML Pen SUBCUT SCH ×3 (07:03→17:29)
[2016-12-05] MEDS: hydrALAZINE 25 MG Tab PO SCH ×2 (08:06→20:17)
[2016-12-05] MEDS: Ferrous Sulfate 325 MG Tab PO SCH ×3 (08:07→20:17)
[2016-12-05] MEDS: Sertraline 50 MG Tab PO SCH (08:07)
[2016-12-05] MEDS: Pantoprazole 40 MG Tab.CR PO SCH (08:07)
[2016-12-05] MEDS: Potassium Chloride 20 MEQ Tab.ER PO SCH (08:07)
[2016-12-05] MEDS: Rifaximin 550 MG Tab PO SCH ×2 (08:09→20:18)
[2016-12-05] MEDS: Lactulose Soln 10 GM/15 ML 30 ML UD Cup PO SCH ×4 (08:15→20:16)
--- NOTE | 2016-12-05 08:24 | PCM.PN ---
- General Info Date of Service: 12/05/16 Admission Dx/Problem (Free Text): Admission Diagnosis/Problem Admission Diagnosis/Problem Congestive heart failure Subjective Update: Follow up Functional Status: Reports: pain controlled, tolerating diet, urinating. Denies : new symptoms - Review of Systems General: Reports: Weakness. Denies: Fever, Fatigue, Malaise HEENT: Reports: no symptoms Pulmonary: Reports: shortness of breath Cardiovascular: Denies: Chest Pain Gastrointestinal: Denies: Abdominal pain, Nausea, Vomiting Genitourinary: Reports: no symptoms Musculoskeletal: Reports: no symptoms Skin: Denies: cyanosis, pruritis, rash Neurological: Reports: Confusion, Difficulty Walking, Weakness, Gait Disturbance Psychiatric: Denies: depression, anxiety, hallucinations Systems Review Comment:: No overnight or acute issues. He looks much better this am. He is now on 1L NC. He has no new complaints. - Patient Data Vitals - most recent: Last Vital Signs Temp 36.4 C 12/05/16 04:49 Pulse 88 12/05/16 04:49 Resp 20 12/05/16 04:49 BP 135/68 12/05/16 04:49 Pulse Ox 98 12/05/16 04:49 Weight - most recent: 114.441 kg I&O - last 24 hours: Intake & Output 12/04/16 12/05/16 12/05/16 22:59 06:59 14:59 Intake Total 600 821 Output Total 525 400 Balance 75 421 Lab Results last 24 hrs: Laboratory Results - last 24 hr 12/04/16 12/04/16 12/04/16 Range/Units 11:35 12:55 12:55 WBC (4.23-9.07) K/mm3 RBC (4.63-6.08) M/mm3 Hgb (13.7-17.5) gm/L Hct (40.1-51.0) % MCV (79.0-92.2) fl MCH (25.7-32.2) pg MCHC (32.2-35.5) g/dl RDW Std Deviation (35.1-43.9) fL Plt Count (163-337) K/mm3 MPV (9.4-12.3) fl Neut % (Auto) (34.0-67.9) % Lymph % (Auto) (21.8-53.1) % Blaine % (Auto) (5.3-12.2) % Eos % (Auto) (0.8-7.0) Baso % (Auto) (0.1-1.2) % Neut # (1.78-5.38) K/mm3 Lymph # (1.32-3.57) K/mm3 Blaine # (0.30-0.82) K/mm3 Eos # (0.04-0.54) K/mm3 Baso # (0.01-0.08) K/mm3 Manual Slide Review Sodium (136-145) mEq/L Potassium (3.5-5.1) mEq/L Chloride (98-107) mEq/L Carbon Dioxide (21-32) mEq/L Anion Gap (5-15) BUN (7-18) mg/dL Creatinine (0.7-1.3) mg/dL Est Cr Clr Drug Dosing mL/min Estimated GFR (MDRD) (>60) mL/min BUN/Creatinine Ratio (14-18) Glucose (80-115) mg/dL POC Glucose 151 H (80-115) mg/dL Calcium (8.5-10.1) mg/dL Magnesium (1.8-2.4) mg/dl Total Bilirubin (0.2-1.0) mg/dL AST (15-37) U/L ALT (16-63) U/L Alkaline Phosphatase (46-116) U/L Total Protein (6.4-8.2) g/dl Albumin (3.4-5.0) g/dl Globulin gm/dL Albumin/Globulin Ratio (1-2) Body Fluid Site Fluid Type Thoracentesis fluid Thoracentesis fluid Fluid Volume 24 ML Fluid Color Red Fluid Appearance Cloudy Fluid pH 8.5 (4.5-10.0) Fluid WBC 0.26 (0.20-0.60) k/mm*3 Fluid RBC 0.048 H (0.00-0.010) 10*6/uL Fluid Diff Comment Not Reportable Fluid Seg Neutrophils 13.9 (0-25) % Fluid Lymphocytes 83.3 H (0-78) % Fluid Monocytes 2.8 (0-71) % Fl Polymorphonucl Cell Not Reportable Fluid Glucose 32 mg/dL Fluid Total Protein < 2.0 gm/dl Fluid Albumin Cancelled Fluid LDH 229 U/L C.difficile 027-NAP1-B1 C. difficile Tox (PCR) 12/04/16 12/04/16 12/05/16 Range/Units 17:43 18:31 05:48 WBC 12.45 H (4.23-9.07) K/mm3 RBC 2.65 L (4.63-6.08) M/mm3 Hgb 8.0 L (13.7-17.5) gm/L Hct 24.3 L (40.1-51.0) % MCV 91.7 (79.0-92.2) fl MCH 30.2 (25.7-32.2) pg MCHC 32.9 (32.2-35.5) g/dl RDW Std Deviation 53.2 H (35.1-43.9) fL Plt Count 165 (163-337) K/mm3 MPV 9.3 L (9.4-12.3) fl Neut % (Auto) 78.4 H (34.0-67.9) % Lymph % (Auto) 5.5 L (21.8-53.1) % Blaine % (Auto) 13.9 H (5.3-12.2) % Eos % (Auto) 1.3 (0.8-7.0) Baso % (Auto) 0.5 (0.1-1.2) % Neut # 9.76 H (1.78-5.38) K/mm3 Lymph # 0.69 L (1.32-3.57) K/mm3 Blaine # 1.73 H (0.30-0.82) K/mm3 Eos # 0.16 (0.04-0.54) K/mm3 Baso # 0.06 (0.01-0.08) K/mm3 Manual Slide Review Abnormal smear Sodium (136-145) mEq/L Potassium (3.5-5.1) mEq/L Chloride (98-107) mEq/L Carbon Dioxide (21-32) mEq/L Anion Gap (5-15) BUN (7-18) mg/dL Creatinine (0.7-1.3) mg/dL Est Cr Clr Drug Dosing mL/min Estimated GFR (MDRD) (>60) mL/min BUN/Creatinine Ratio (14-18) Glucose (80-115) mg/dL POC Glucose 166 H (80-115) mg/dL Calcium (8.5-10.1) mg/dL Magnesium (1.8-2.4) mg/dl Total Bilirubin (0.2-1.0) mg/dL AST (15-37) U/L ALT (16-63) U/L Alkaline Phosphatase (46-116) U/L Total Protein (6.4-8.2) g/dl Albumin (3.4-5.0) g/dl Globulin gm/dL Albumin/Globulin Ratio (1-2) Body Fluid Site Fluid Type Fluid Volume ML Fluid Color Fluid Appearance Fluid pH (4.5-10.0) Fluid WBC (0.20-0.60) k/mm*3 Fluid RBC (0.00-0.010) 10*6/uL Fluid Diff Comment Fluid Seg Neutrophils (0-25) % Fluid Lymphocytes (0-78) % Fluid Monocytes (0-71) % Fl Polymorphonucl Cell Fluid Glucose mg/dL Fluid Total Protein gm/dl Fluid Albumin Fluid LDH U/L C.difficile 027-NAP1-B1 Presumptive negative C. difficile Tox (PCR) Negative 12/05/16 12/05/16 Range/Units 05:48 06:34 WBC (4.23-9.07) K/mm3 RBC (4.63-6.08) M/mm3 Hgb (13.7-17.5) gm/L Hct (40.1-51.0) % MCV (79.0-92.2) fl MCH (25.7-32.2) pg MCHC (32.2-35.5) g/dl RDW Std Deviation (35.1-43.9) fL Plt Count (163-337) K/mm3 MPV (9.4-12.3) fl Neut % (Auto) (34.0-67.9) % Lymph % (Auto) (21.8-53.1) % Blaine % (Auto) (5.3-12.2) % Eos % (Auto) (0.8-7.0) Baso % (Auto) (0.1-1.2) % Neut # (1.78-5.38) K/mm3 Lymph # (1.32-3.57) K/mm3 Blaine # (0.30-0.82) K/mm3 Eos # (0.04-0.54) K/mm3 Baso # (0.01-0.08) K/mm3 Manual Slide Review Sodium 144 (136-145) mEq/L Potassium 4.1 (3.5-5.1) mEq/L Chloride 113 H (98-107) mEq/L Carbon Dioxide 19 L (21-32) mEq/L Anion Gap 16.1 H (5-15) BUN 64 H (7-18) mg/dL Creatinine 5.4 H (0.7-1.3) mg/dL Est Cr Clr Drug Dosing 13.97 mL/min Estimated GFR (MDRD) 11 (>60) mL/min BUN/Creatinine Ratio 11.9 L (14-18) Glucose 93 (80-115) mg/dL POC Glucose 85 (80-115) mg/dL Calcium 8.3 L (8.5-10.1) mg/dL Magnesium 2.3 (1.8-2.4) mg/dl Total Bilirubin 1.3 H (0.2-1.0) mg/dL AST 206 H (15-37) U/L ALT 52 (16-63) U/L Alkaline Phosphatase 97 (46-116) U/L Total Protein 5.4 L (6.4-8.2) g/dl Albumin 1.6 L (3.4-5.0) g/dl Globulin 3.8 gm/dL Albumin/Globulin Ratio 0.4 L (1-2) Body Fluid Site Fluid Type Fluid Volume ML Fluid Color Fluid Appearance Fluid pH (4.5-10.0) Fluid WBC (0.20-0.60) k/mm*3 Fluid RBC (0.00-0.010) 10*6/uL Fluid Diff Comment Fluid Seg Neutrophils (0-25) % Fluid Lymphocytes (0-78) % Fluid Monocytes (0-71) % Fl Polymorphonucl Cell Fluid Glucose mg/dL Fluid Total Protein gm/dl Fluid Albumin Fluid LDH U/L C.difficile 027-NAP1-B1 C. difficile Tox (PCR) Sha Results last 24 hrs: Microbiology 12/04/16 12:55 Gram Stain - Final Thoracentesis Fluid - Right 12/04/16 12:55 CHRISTIANO Preparation - Final Other Med Orders - Current: Current Medications Acetaminophen (Tylenol) 650 mg PO Q4H PRN PRN Reason: Pain (Mild 1-3)/fever Acetaminophen/Hydrocodone Bitart ([place] 325-5 Mg) 1 tab PO Q4H PRN PRN Reason: Pain (moderate 4-6) Albuterol/Ipratropium (Duoneb 3.0-0.5 Mg/3 Ml) 3 ml NEB Q4H PRN PRN Reason: Shortness Of Breath/wheezing Last Admin: 12/04/16 05:11 Dose: 3 ml Bisacodyl (Dulcolax) 5 mg PO DAILY PRN PRN Reason: Constipation Famotidine (Pepcid) 20 mg PO BEDTIME [facility] Last Admin: 12/04/16 22:08 Dose: 20 mg Ferrous Sulfate (Ferrous Sulfate) 325 mg PO TID [facility] Last Admin: 12/04/16 22:08 Dose: 325 mg Flunisolide (Nasalide Nasal [place]) 0 ml NASBOTH Q12H [facility] Last Admin: 12/04/16 23:03 Dose: 2 spray Hydralazine HCl (Apresoline) 25 mg PO Q12HR [facility] Last Admin: 12/04/16 22:08 Dose: 25 mg Hydralazine HCl (Apresoline) 20 mg IVPUSH Q4H PRN PRN Reason: Hypertension Last Admin: 12/04/16 15:44 Dose: 20 mg Promethazine HCl 12.5 mg/ (Sodium Chloride) 50.5 mls @ 100 mls/hr IV Q6H PRN PRN Reason: Nausea/Vomiting Furosemide 100 mg/ Sodium (Chloride) 100 mls @ 3 mls/hr IV TITRATE [facility] PRN Reason: Protocol Last Infusion: 12/04/16 16:50 Dose: 3 mls/hr Levofloxacin/Dextrose 500 mg/ (Premix) 100 mls @ 100 mls/hr IV Q48H [facility] Piperacillin Sod/Tazobactam (Sod 4.5 gm/ Sodium Chloride) 100 mls @ 25 mls/hr IV Q12H [facility] Last Admin: 12/05/16 01:59 Dose: 25 mls/hr Sodium Chloride (Normal Saline) 250 mls @ 10 mls/hr IV ASDIRECTED [facility] Last Admin: 12/05/16 00:18 Dose: 10 mls/hr Insulin Aspart (Novolog) 12 unit SUBCUT TIDAC [facility] Last Admin: 12/05/16 07:03 Dose: Not Given Insulin Detemir (Levemir) 12 unit SUBCUT BEDTIME [facility] Last Admin: 12/04/16 22:10 Dose: 12 units Lactulose (Cephulac) 30 gm PO QID [facility] Last Admin: 12/04/16 22:09 Dose: 30 gm Lorazepam (Ativan) 0.5 mg IV Q6H PRN PRN Reason: Anxiety Magnesium Sulfate (Pharmacy To Dose - Magnesium Replacement) 1 dose .XX ASDIRECTED [facility] Metoprolol Tartrate (Lopressor) 5 mg IVPUSH Q4H PRN PRN Reason: Tachycardia Morphine Sulfate (Morphine) 1 mg IVPUSH Q4H PRN PRN Reason: Pain (severe 7-10) Stop: 12/07/16 23:26 Ondansetron HCl (Zofran) 4 mg IV Q6H PRN PRN Reason: Nausea/Vomiting Ondansetron HCl (Zofran Odt) 4 mg PO .EVERY 6 HOURS PRN PRN Reason: Nausea Pantoprazole Sodium (Protonix) 40 mg PO DAILY@0800 [facility] Last Admin: 12/04/16 09:59 Dose: 40 mg Potassium Chloride (Klor-Con M20) 20 meq PO DAILY [facility] Last Admin: 12/04/16 10:00 Dose: Not Given Potassium Chloride (Pharmacy To Dose - Potassium Replacement) 1 dose .XX ASDIRECTED [facility] Rifaximin (Xifaxan) 550 mg PO BID [facility] Last Admin: 12/04/16 22:17 Dose: 550 mg Salsalate (Disalcid) 500 mg PO ASDIRECTED PRN PRN Reason: Headache Senna/Docusate Sodium (Senna Plus) 1 tab PO BID PRN PRN Reason: Constipation Sertraline HCl (Zoloft) 50 mg PO DAILY [facility] Last Admin: 12/04/16 09:58 Dose: 50 mg Sodium Chloride (Saline Flush) 10 ml FLUSH ASDIRECTED PRN PRN Reason: Keep Vein Open Last Admin: 12/03/16 19:45 Dose: 10 ml Sodium Chloride (Saline Flush) 10 ml FLUSH ASDIRECTED PRN PRN Reason: Keep Vein Open Discontinued Medications Furosemide (Lasix) 40 mg IVPUSH NOW ONE Stop: 12/03/16 19:37 Last Admin: 12/03/16 19:45 Dose: 40 mg Levofloxacin/Dextrose 250 mg/ (Premix) 50 mls @ 50 mls/hr IV ONETIME ONE Stop: 12/04/16 02:29 Last Admin: 12/04/16 01:35 Dose: 50 mls/hr Sodium Chloride (Normal Saline) Confirm Administered Dose 250 mls @ as directed .ROUTE .STK-MED ONE Stop: 12/04/16 01:21 Last Admin: 12/04/16 01:35 Dose: 10 ml Piperacillin Sod/Tazobactam (Sod 4.5 gm/ Sodium Chloride) 100 mls @ 200 mls/hr IV ONETIME ONE Stop: 12/04/16 13:29 Last Admin: 12/04/16 14:28 Dose: 200 mls/hr Piperacillin Sod/Tazobactam (Sod 4.5 gm/ Sodium Chloride) 100 mls @ 25 mls/hr IV Q12H [facility] Last Admin: 12/04/16 22:21 Dose: Not Given Lactulose (Cephulac) 30 gm PO TID [place] - Exam Quality Assessment: supplemental oxygen General: alert, cooperative, no acute distress, other (Obese) HEENT: Pupils equal, Pupils reactive, Mucous membr. moist/pink, Other (short and thick) Neck: supple, trachea midline, no JVD, no thyromegaly Lungs: Normal respiratory effort, Decreased breath sounds, Rales Cardiovascular: Regular Rate, Regular Rhythm, Murmurs Abdomen: bowel sounds present, no tenderness, no distension, other (Obese) (Male) Exam: Deferred Back Exam: normal inspection, decreased range of motion Extremities: normal pulses, no tenderness/swelling, no cyanosis, no calf tenderness, calf tenderness, edema (mild) Skin: warm, dry, intact Neurological: no new focal deficit. No: normal gait Psy/Mental Status: alert. No: normal affect - Problem List Review Problem List Initiated/Reviewed/Updated: Yes - My Orders Last 24 Hours: My Active Orders 12/04/16 08:00 Blood Glucose Check, Bedside [RC] TIDAC Pantoprazole [Protonix] 40 mg PO DAILY@0800 12/04/16 09:00 Ferrous Sulfate 325 mg PO TID Lactulose [Cephulac] 30 gm PO QID Rifaximin [Xifaxan] 550 mg PO BID Sertraline [Zoloft] 50 mg PO DAILY hydrALAZINE [Apresoline] 25 mg PO Q12HR 12/04/16 12:55 CULTURE AFB AND SMEAR [MREF] Routine CULTURE BODY FLUID + SMEAR [RM] Routine CULTURE FUNGUS [MREF] Routine MISC TEST Routine 12/04/16 17:30 Consult to Dietary [Consult to Lamp Tester And Inspector] [CONS] Routine 12/04/16 21:00 Famotidine [Pepcid] 20 mg PO BEDTIME Insulin Detemir [Levemir] 12 unit SUBCUT BEDTIME 12/04/16 22:30 Sodium Chloride 0.9% [Normal Saline] 250 ml IV ASDIRECTED 12/05/16 02:00 Piperacillin/Tazobactam [Zosyn] 4.5 gm Sodium Chloride 0.9% [Normal Saline] 100 ml IV Q12H 12/05/16 05:11 Chest 1V Frontal [CR] Routine 12/05/16 21:00 Levofloxacin/Dextrose 5%-Water [Levaquin in D5W 500 MG/100 ML] 500 mg Premix Bag 1 bag IV Q48H 12/06/16 05:11 CBC WITH AUTO DIFF [HEME] AM COMPREHENSIVE METABOLIC PN,CMP [CHEM] AM MAGNESIUM [CHEM] AM 12/07/16 05:11 CBC WITH AUTO DIFF [HEME] AM COMPREHENSIVE METABOLIC PN,CMP [CHEM] AM MAGNESIUM [CHEM] AM 12/08/16 05:11 CBC WITH AUTO DIFF [HEME] AM - Plan Plan:: Assessment/Plan: Acute: Multi-focal PNA - Patchy areas of alveolar density within both upper lungs/Areas of consolidation within both lower lungs - Continue IV Levaquin and Zosyn pharmacy to renally dose - Incentive spirometry as directed Acute Congestive Heart Failure - Likely induced but ESLD - Diagnosed recently in [place] - Awaiting 2D Echo report from [place] - Discontinue Lasix drip at low rate due reduced renal functional - HF protocol: salt restrictions, daily weights, Is/Os - Resume home diuretic dose B/L Pleural Effusions S/p Thoracentesis - Lasix drip at low rate of 3 mls/hr - Supplemental O2 - CT scan: Small-Moderate Size R>L - Diagnostic and Therapeutic thoracentesis - 1050 ml of pleural fluid removed Generalized Weakness - 2/2 above - Continue PT/OT Reduced Appetite - Likely from above - Expect to improve once metabolic derangement gets better Resolved: S/p Elevated Troponin Level - This chronic, likely from CKD and LV Strain from pulmonary congestion - We will not trend or monitor S/p Hepatic Encephalopathy - Awake but no alert, Ox3 negative - No Asterixis - Ammonia 31 ---> 59 - Continue Lactulose and Xafaxan - Continue Lactulose from TID to QID until bowel movement - Aspiration Precaution Chronic: DM2 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
--- NOTE | 2016-12-05 10:29 | CR ---
Chest: Portable view of the chest was obtained. Comparison: Previous chest x-ray of 12/04/16. Increasing density within the right lung base from prior study possibly due to increasing pleural effusion. Pulmonary vessels are congested which appear stable. Heart is enlarged. Bony structures are grossly intact. Impression: 1. Increasing density within the right lung base from prior study possibly due to increasing pleural effusion. 2. Other portions of the chest are stable. Diagnostic code #3
[2016-12-05] MEDS ORDERED: Furosemide 40 MG Tab PO PRN (17:48)
[2016-12-05] MEDS: Famotidine 20 MG Tab PO SCH (20:17)
[2016-12-05] MEDS: Levofloxacin/Dextrose 5%-Water 500 MG in Premix Bag 1 BAG IV SCH (20:19)
[2016-12-05] MEDS: Insulin Detemir 100 Units/ML 3 ML Pen SUBCUT SCH (20:28)
[2016-12-06] MEDS: Piperacillin/Tazobactam 4.5 GM in Sodium Chloride 0.9% 100 ML IV SCH ×2 (02:20→14:42)
[2016-12-06] MEDS: Insulin Aspart 100 Units/ML 3 ML Pen SUBCUT SCH ×4 (07:00→17:30)
[2016-12-06] MEDS: Potassium Chloride 20 MEQ Tab.ER PO SCH (08:31)
[2016-12-06] MEDS: hydrALAZINE 25 MG Tab PO SCH ×2 (08:31→21:28)
[2016-12-06] MEDS: Sertraline 50 MG Tab PO SCH (08:31)
[2016-12-06] MEDS: Ferrous Sulfate 325 MG Tab PO SCH ×3 (08:32→21:28)
[2016-12-06] MEDS: Pantoprazole 40 MG Tab.CR PO SCH (08:33)
[2016-12-06] MEDS: Lactulose Soln 10 GM/15 ML 30 ML UD Cup PO SCH ×4 (08:33→21:29)
[2016-12-06] MEDS: Rifaximin 550 MG Tab PO SCH ×2 (08:34→21:31)
--- NOTE | 2016-12-06 16:33 | PCM.PN ---
- General Info Date of Service: 12/06/16 Functional Status: Reports: pain controlled, tolerating diet, urinating - Review of Systems General: Reports: No Symptoms HEENT: Reports: no symptoms Pulmonary: Reports: no symptoms Cardiovascular: Reports: No Symptoms Gastrointestinal: Reports: No symptoms Genitourinary: Reports: no symptoms Musculoskeletal: Reports: no symptoms Skin: Reports: no symptoms Neurological: Reports: No Symptoms Psychiatric: Reports: no symptoms - Patient Data Vitals - most recent: Last Vital Signs Temp 36.1 C 12/06/16 11:16 Pulse 76 12/06/16 11:16 Resp 20 12/06/16 11:16 BP 145/57 H 12/06/16 11:16 Pulse Ox 98 12/06/16 11:16 Weight - most recent: 115.757 kg I&O - last 24 hours: Intake & Output 12/06/16 12/06/16 12/06/16 06:59 14:59 22:59 Intake Total 800 360 600 Output Total 100 Balance 700 360 600 Lab Results last 24 hrs: Laboratory Results - last 24 hr 12/05/16 12/06/16 12/06/16 Range/Units 16:57 06:19 06:19 WBC 12.31 H (4.23-9.07) K/mm3 RBC 2.70 L (4.63-6.08) M/mm3 Hgb 8.1 L (13.7-17.5) gm/L Hct 24.9 L (40.1-51.0) % MCV 92.2 (79.0-92.2) fl MCH 30.0 (25.7-32.2) pg MCHC 32.5 (32.2-35.5) g/dl RDW Std Deviation 54.5 H (35.1-43.9) fL Plt Count 187 (163-337) K/mm3 MPV 8.6 L (9.4-12.3) fl Neut % (Auto) 75.0 H (34.0-67.9) % Lymph % (Auto) 8.0 L (21.8-53.1) % [place] % (Auto) 13.0 H (5.3-12.2) % Eos % (Auto) 2.8 (0.8-7.0) Baso % (Auto) 0.5 (0.1-1.2) % Neut # 9.23 H (1.78-5.38) K/mm3 Lymph # 0.99 L (1.32-3.57) K/mm3 [place] # 1.60 H (0.30-0.82) K/mm3 Eos # 0.34 (0.04-0.54) K/mm3 Baso # 0.06 (0.01-0.08) K/mm3 Manual Slide Review Abnormal smear Sodium 147 H (136-145) mEq/L Potassium 4.1 (3.5-5.1) mEq/L Chloride 114 H (98-107) mEq/L Carbon Dioxide 19 L (21-32) mEq/L Anion Gap 18.1 H (5-15) BUN 68 H (7-18) mg/dL Creatinine 5.8 H (0.7-1.3) mg/dL Est Cr Clr Drug Dosing 13.01 mL/min Estimated GFR (MDRD) 10 (>60) mL/min BUN/Creatinine Ratio 11.7 L (14-18) Glucose 96 (80-115) mg/dL POC Glucose 188 H (80-115) mg/dL Calcium 8.2 L (8.5-10.1) mg/dL Magnesium 2.3 (1.8-2.4) mg/dl Total Bilirubin 1.1 H (0.2-1.0) mg/dL AST 170 H (15-37) U/L ALT 54 (16-63) U/L Alkaline Phosphatase 103 (46-116) U/L B-Natriuretic Peptide (0-100) pg/mL Total Protein 5.5 L (6.4-8.2) g/dl Albumin 1.6 L (3.4-5.0) g/dl Globulin 3.9 gm/dL Albumin/Globulin Ratio 0.4 L (1-2) 12/06/16 12/06/16 12/06/16 Range/Units 06:19 06:28 11:14 WBC (4.23-9.07) K/mm3 RBC (4.63-6.08) M/mm3 Hgb (13.7-17.5) gm/L Hct (40.1-51.0) % MCV (79.0-92.2) fl MCH (25.7-32.2) pg MCHC (32.2-35.5) g/dl RDW Std Deviation (35.1-43.9) fL Plt Count (163-337) K/mm3 MPV (9.4-12.3) fl Neut % (Auto) (34.0-67.9) % Lymph % (Auto) (21.8-53.1) % [place] % (Auto) (5.3-12.2) % Eos % (Auto) (0.8-7.0) Baso % (Auto) (0.1-1.2) % Neut # (1.78-5.38) K/mm3 Lymph # (1.32-3.57) K/mm3 [place] # (0.30-0.82) K/mm3 Eos # (0.04-0.54) K/mm3 Baso # (0.01-0.08) K/mm3 Manual Slide Review Sodium (136-145) mEq/L Potassium (3.5-5.1) mEq/L Chloride (98-107) mEq/L Carbon Dioxide (21-32) mEq/L Anion Gap (5-15) BUN (7-18) mg/dL Creatinine (0.7-1.3) mg/dL Est Cr Clr Drug Dosing mL/min Estimated GFR (MDRD) (>60) mL/min BUN/Creatinine Ratio (14-18) Glucose (80-115) mg/dL POC Glucose 88 156 H (80-115) mg/dL Calcium (8.5-10.1) mg/dL Magnesium (1.8-2.4) mg/dl Total Bilirubin (0.2-1.0) mg/dL AST (15-37) U/L ALT (16-63) U/L Alkaline Phosphatase (46-116) U/L B-Natriuretic Peptide 1006 H (0-100) pg/mL Total Protein (6.4-8.2) g/dl Albumin (3.4-5.0) g/dl Globulin gm/dL Albumin/Globulin Ratio (1-2) Sha Results last 24 hrs: Microbiology 12/04/16 12:55 Gram Stain - Final Thoracentesis Fluid - Right Body Fluid Culture - Preliminary NO GROWTH AFTER 2 DAYS 12/04/16 12:55 Acid Fast Bacilli Smear - Final Thoracentesis Fluid - Right Med Orders - Current: Current Medications Acetaminophen (Tylenol) 650 mg PO Q4H PRN PRN Reason: Pain (Mild 1-3)/fever Acetaminophen/Hydrocodone Bitart ([place] 325-5 Mg) 1 tab PO Q4H PRN PRN Reason: Pain (moderate 4-6) Albuterol/Ipratropium (Duoneb 3.0-0.5 Mg/3 Ml) 3 ml NEB Q4H PRN PRN Reason: Shortness Of Breath/wheezing Last Admin: 12/04/16 05:11 Dose: 3 ml Bisacodyl (Dulcolax) 5 mg PO DAILY PRN PRN Reason: Constipation Famotidine (Pepcid) 20 mg PO BEDTIME [facility] Last Admin: 12/05/16 20:17 Dose: 20 mg Ferrous Sulfate (Ferrous Sulfate) 325 mg PO TID [facility] Last Admin: 12/06/16 14:43 Dose: 325 mg Flunisolide (Nasalide Nasal [place]) 0 ml NASBOTH BID [facility] Last Admin: 12/06/16 08:31 Dose: 2 sprays Furosemide (Lasix) 80 mg PO DAILY PRN PRN Reason: Other Hydralazine HCl (Apresoline) 25 mg PO Q12HR [facility] Last Admin: 12/06/16 08:31 Dose: 25 mg Hydralazine HCl (Apresoline) 20 mg IVPUSH Q4H PRN PRN Reason: Hypertension Last Admin: 12/04/16 15:44 Dose: 20 mg Promethazine HCl 12.5 mg/ (Sodium Chloride) 50.5 mls @ 100 mls/hr IV Q6H PRN PRN Reason: Nausea/Vomiting Levofloxacin/Dextrose 500 mg/ (Premix) 100 mls @ 100 mls/hr IV Q48H [facility] Last Admin: 12/05/16 20:19 Dose: 100 mls/hr Piperacillin Sod/Tazobactam (Sod 4.5 gm/ Sodium Chloride) 100 mls @ 25 mls/hr IV Q12H [facility] Last Admin: 12/06/16 14:42 Dose: 25 mls/hr Insulin Aspart (Novolog) 12 unit SUBCUT TIDAC [facility] Last Admin: 12/06/16 12:38 Dose: 13 units Insulin Detemir (Levemir) 12 unit SUBCUT BEDTIME [facility] Last Admin: 12/05/16 20:28 Dose: 12 units Lactulose (Cephulac) 30 gm PO QID [facility] Last Admin: 12/06/16 12:46 Dose: 30 gm Lorazepam (Ativan) 0.5 mg IV Q6H PRN PRN Reason: Anxiety Metoprolol Tartrate (Lopressor) 5 mg IVPUSH Q4H PRN PRN Reason: Tachycardia Morphine Sulfate (Morphine) 1 mg IVPUSH Q4H PRN PRN Reason: Pain (severe 7-10) Stop: 12/07/16 23:26 Ondansetron HCl (Zofran) 4 mg IV Q6H PRN PRN Reason: Nausea/Vomiting Ondansetron HCl (Zofran Odt) 4 mg PO .EVERY 6 HOURS PRN PRN Reason: Nausea Pantoprazole Sodium (Protonix) 40 mg PO DAILY@0800 [facility] Last Admin: 12/06/16 08:33 Dose: 40 mg Potassium Chloride (Klor-Con M20) 20 meq PO DAILY [facility] Last Admin: 12/06/16 08:31 Dose: 20 meq Rifaximin (Xifaxan) 550 mg PO BID [facility] Last Admin: 12/06/16 08:34 Dose: 550 mg Salsalate (Disalcid) 500 mg PO ASDIRECTED PRN PRN Reason: Headache Senna/Docusate Sodium (Senna Plus) 1 tab PO BID PRN PRN Reason: Constipation Sertraline HCl (Zoloft) 50 mg PO DAILY [facility] Last Admin: 12/06/16 08:31 Dose: 50 mg Sodium Chloride (Saline Flush) 10 ml FLUSH ASDIRECTED PRN PRN Reason: Keep Vein Open Last Admin: 12/03/16 19:45 Dose: 10 ml Sodium Chloride (Saline Flush) 10 ml FLUSH ASDIRECTED PRN PRN Reason: Keep Vein Open Discontinued Medications Flunisolide (Nasalide Nasal [place]) 0 ml NASBOTH Q12H [facility] Last Admin: 12/05/16 12:50 Dose: Not Given Furosemide (Lasix) 40 mg IVPUSH NOW ONE Stop: 12/03/16 19:37 Last Admin: 12/03/16 19:45 Dose: 40 mg Furosemide 100 mg/ Sodium (Chloride) 100 mls @ 3 mls/hr IV TITRATE [facility] PRN Reason: Protocol Last Infusion: 12/04/16 16:50 Dose: 3 mls/hr Levofloxacin/Dextrose 250 mg/ (Premix) 50 mls @ 50 mls/hr IV ONETIME ONE Stop: 12/04/16 02:29 Last Admin: 12/04/16 01:35 Dose: 50 mls/hr Sodium Chloride (Normal Saline) Confirm Administered Dose 250 mls @ as directed .ROUTE .STK-MED ONE Stop: 12/04/16 01:21 Last Admin: 12/04/16 01:35 Dose: 10 ml Piperacillin Sod/Tazobactam (Sod 4.5 gm/ Sodium Chloride) 100 mls @ 200 mls/hr IV ONETIME ONE Stop: 12/04/16 13:29 Last Admin: 12/04/16 14:28 Dose: 200 mls/hr Piperacillin Sod/Tazobactam (Sod 4.5 gm/ Sodium Chloride) 100 mls @ 25 mls/hr IV Q12H [facility] Last Admin: 12/04/16 22:21 Dose: Not Given Sodium Chloride (Normal Saline) 250 mls @ 10 mls/hr IV ASDIRECTED [facility] Last Admin: 12/05/16 00:18 Dose: 10 mls/hr Lactulose (Cephulac) 30 gm PO TID [facility] Magnesium Sulfate (Pharmacy To Dose - Magnesium Replacement) 1 dose .XX ASDIRECTED [facility] Potassium Chloride (Pharmacy To Dose - Potassium Replacement) 1 dose .XX ASDIRECTED [facility] - Exam Quality Assessment: supplemental oxygen, DVT prophylaxis General: alert, oriented, no acute distress HEENT: Pupils equal, Pupils reactive, EOMI Neck: supple, trachea midline Lungs: Normal respiratory effort Cardiovascular: Regular Rate Abdomen: bowel sounds present, soft, no tenderness, no distension (Male) Exam: Deferred Back Exam: normal inspection Extremities: normal pulses Skin: warm Neurological: no new focal deficit Psy/Mental Status: alert - Problem List Review Problem List Initiated/Reviewed/Updated: Yes - Plan Plan:: Assessment/Plan: Acute: Multi-focal PNA - Patchy areas of alveolar density within both upper lungs/Areas of consolidation within both lower lungs - Continue IV Levaquin and Zosyn pharmacy to renally dose - Incentive spirometry as directed Acute Congestive Heart Failure - Likely induced but ESLD - Diagnosed recently in [place] - Awaiting 2D Echo report from [place] - Discontinue Lasix drip at low rate due reduced renal functional - HF protocol: salt restrictions, daily weights, Is/Os - Resume home diuretic dose B/L Pleural Effusions S/p Thoracentesis - Lasix drip at low rate of 3 mls/hr - Supplemental O2 - CT scan: Small-Moderate Size R>L - Diagnostic and Therapeutic thoracentesis - 1050 ml of pleural fluid removed Generalized Weakness - 2/2 above - Continue PT/OT Reduced Appetite - Likely from above - Expect to improve once metabolic derangement gets better Resolved: S/p Elevated Troponin Level - This chronic, likely from CKD and LV Strain from pulmonary congestion - We will not trend or monitor S/p Hepatic Encephalopathy - Awake but no alert, Ox3 negative - No Asterixis - Ammonia 31 ---> 59 - Continue Lactulose and Xafaxan - Continue Lactulose from TID to QID until bowel movement - Aspiration Precaution Chronic: DM2 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
[2016-12-06] MEDS: Insulin Detemir 100 Units/ML 3 ML Pen SUBCUT SCH (21:29)
[2016-12-06] MEDS: Famotidine 20 MG Tab PO SCH (21:31)
[2016-12-07] MEDS: Piperacillin/Tazobactam 4.5 GM in Sodium Chloride 0.9% 100 ML IV SCH ×2 (01:37→14:02)
[2016-12-07] MEDS: Lactulose Soln 10 GM/15 ML 30 ML UD Cup PO SCH ×4 (09:05→22:18)
--- NOTE | 2016-12-07 09:05 | PCM.SN ---
- Free Text/Narrative Note: 0816 called to room for lab draw start 24ga. Iv right foot good blood flow good flush out room at 0902
[2016-12-07] MEDS: Pantoprazole 40 MG Tab.CR PO SCH (09:06)
[2016-12-07] MEDS: hydrALAZINE 25 MG Tab PO SCH ×2 (09:06→22:18)
[2016-12-07] MEDS: Potassium Chloride 20 MEQ Tab.ER PO SCH (09:06)
[2016-12-07] MEDS: Rifaximin 550 MG Tab PO SCH ×2 (09:07→22:20)
[2016-12-07] MEDS: Ferrous Sulfate 325 MG Tab PO SCH ×3 (09:07→22:18)
[2016-12-07] MEDS: Insulin Aspart 100 Units/ML 3 ML Pen SUBCUT SCH ×3 (09:07→18:03)
[2016-12-07] MEDS: Sertraline 50 MG Tab PO SCH (09:07)
--- NOTE | 2016-12-07 17:14 | PCM.PN ---
- General Info Date of Service: 12/07/16 Functional Status: Reports: tolerating diet, urinating - Review of Systems General: Reports: No Symptoms HEENT: Reports: no symptoms Pulmonary: Reports: no symptoms Cardiovascular: Reports: No Symptoms Gastrointestinal: Reports: No symptoms Genitourinary: Reports: no symptoms Musculoskeletal: Reports: no symptoms Skin: Reports: no symptoms Neurological: Reports: No Symptoms Psychiatric: Reports: no symptoms - Patient Data Vitals - most recent: Last Vital Signs Temp 36.8 C 12/07/16 15:44 Pulse 65 12/07/16 15:44 Resp 18 12/07/16 15:44 BP 161/72 H 12/07/16 15:44 Pulse Ox 92 L 12/07/16 15:44 Weight - most recent: 116.619 kg I&O - last 24 hours: Intake & Output 12/07/16 12/07/16 12/07/16 06:59 14:59 22:59 Intake Total 1998 740 2412 Balance 1181 817 1215 Lab Results last 24 hrs: Laboratory Results - last 24 hr 12/06/16 12/07/16 12/07/16 Range/Units 17:30 06:37 08:53 WBC 10.30 H (4.23-9.07) K/mm3 RBC 2.97 L (4.63-6.08) M/mm3 Hgb 8.8 L (13.7-17.5) gm/L Hct 27.2 L (40.1-51.0) % MCV 91.6 (79.0-92.2) fl MCH 29.6 (25.7-32.2) pg MCHC 32.4 (32.2-35.5) g/dl RDW Std Deviation 54.4 H (35.1-43.9) fL Plt Count 196 (163-337) K/mm3 MPV 9.1 L (9.4-12.3) fl Neut % (Auto) 72.7 H (34.0-67.9) % Lymph % (Auto) 9.2 L (21.8-53.1) % [place] % (Auto) 12.4 H (5.3-12.2) % Eos % (Auto) 4.3 (0.8-7.0) Baso % (Auto) 0.6 (0.1-1.2) % Neut # (Auto) 7.49 H (1.78-5.38) K/mm3 Lymph # (Auto) 0.95 L (1.32-3.57) K/mm3 [place] # (Auto) 1.28 H (0.30-0.82) K/mm3 Eos # (Auto) 0.44 (0.04-0.54) K/mm3 Baso # (Auto) 0.06 (0.01-0.08) K/mm3 Manual Slide Review Abnormal smear Sodium (136-145) mEq/L Potassium (3.5-5.1) mEq/L Chloride (98-107) mEq/L Carbon Dioxide (21-32) mEq/L Anion Gap (5-15) BUN (7-18) mg/dL Creatinine (0.7-1.3) mg/dL Est Cr Clr Drug Dosing mL/min Estimated GFR (MDRD) (>60) mL/min BUN/Creatinine Ratio (14-18) Glucose (80-115) mg/dL POC Glucose 153 H 73 L (80-115) mg/dL Calcium (8.5-10.1) mg/dL Magnesium (1.8-2.4) mg/dl Total Bilirubin (0.2-1.0) mg/dL AST (15-37) U/L ALT (16-63) U/L Alkaline Phosphatase (46-116) U/L Total Protein (6.4-8.2) g/dl Albumin (3.4-5.0) g/dl Globulin gm/dL Albumin/Globulin Ratio (1-2) 12/07/16 12/07/16 Range/Units 08:53 11:28 WBC (4.23-9.07) K/mm3 RBC (4.63-6.08) M/mm3 Hgb (13.7-17.5) gm/L Hct (40.1-51.0) % MCV (79.0-92.2) fl MCH (25.7-32.2) pg MCHC (32.2-35.5) g/dl RDW Std Deviation (35.1-43.9) fL Plt Count (163-337) K/mm3 MPV (9.4-12.3) fl Neut % (Auto) (34.0-67.9) % Lymph % (Auto) (21.8-53.1) % [place] % (Auto) (5.3-12.2) % Eos % (Auto) (0.8-7.0) Baso % (Auto) (0.1-1.2) % Neut # (Auto) (1.78-5.38) K/mm3 Lymph # (Auto) (1.32-3.57) K/mm3 [place] # (Auto) (0.30-0.82) K/mm3 Eos # (Auto) (0.04-0.54) K/mm3 Baso # (Auto) (0.01-0.08) K/mm3 Manual Slide Review Sodium 143 (136-145) mEq/L Potassium 4.9 (3.5-5.1) mEq/L Chloride 112 H (98-107) mEq/L Carbon Dioxide 20 L (21-32) mEq/L Anion Gap 15.9 H (5-15) BUN 70 H (7-18) mg/dL Creatinine 5.5 H (0.7-1.3) mg/dL Est Cr Clr Drug Dosing 13.72 mL/min Estimated GFR (MDRD) 10 (>60) mL/min BUN/Creatinine Ratio 12.7 L (14-18) Glucose 126 H (80-115) mg/dL POC Glucose 149 H (80-115) mg/dL Calcium 8.1 L (8.5-10.1) mg/dL Magnesium 2.4 (1.8-2.4) mg/dl Total Bilirubin 1.0 (0.2-1.0) mg/dL AST 146 H (15-37) U/L ALT 60 (16-63) U/L Alkaline Phosphatase 102 (46-116) U/L Total Protein 5.8 L (6.4-8.2) g/dl Albumin 1.6 L (3.4-5.0) g/dl Globulin 4.2 gm/dL Albumin/Globulin Ratio 0.4 L (1-2) Sha Results last 24 hrs: Microbiology 12/04/16 12:55 Gram Stain - Final Thoracentesis Fluid - Right Body Fluid Culture - Preliminary NO GROWTH AFTER 3 DAYS Med Orders - Current: Current Medications Acetaminophen (Tylenol) 650 mg PO Q4H PRN PRN Reason: Pain (Mild 1-3)/fever Acetaminophen/Hydrocodone Bitart ([place] 325-5 Mg) 1 tab PO Q4H PRN PRN Reason: Pain (moderate 4-6) Albuterol/Ipratropium (Duoneb 3.0-0.5 Mg/3 Ml) 3 ml NEB Q4H PRN PRN Reason: Shortness Of Breath/wheezing Last Admin: 12/04/16 05:11 Dose: 3 ml Bisacodyl (Dulcolax) 5 mg PO DAILY PRN PRN Reason: Constipation Famotidine (Pepcid) 20 mg PO BEDTIME [facility] Last Admin: 12/06/16 21:31 Dose: 20 mg Ferrous Sulfate (Ferrous Sulfate) 325 mg PO TID [facility] Last Admin: 12/07/16 14:02 Dose: 325 mg Flunisolide (Nasalide Nasal [place]) 0 ml NASBOTH BID [facility] Last Admin: 12/07/16 09:07 Dose: 2 sprays Furosemide (Lasix) 80 mg PO DAILY PRN PRN Reason: Other Last Admin: 12/07/16 05:46 Dose: 80 mg Hydralazine HCl (Apresoline) 25 mg PO Q12HR [facility] Last Admin: 12/07/16 09:06 Dose: 25 mg Hydralazine HCl (Apresoline) 20 mg IVPUSH Q4H PRN PRN Reason: Hypertension Last Admin: 12/04/16 15:44 Dose: 20 mg Promethazine HCl 12.5 mg/ (Sodium Chloride) 50.5 mls @ 100 mls/hr IV Q6H PRN PRN Reason: Nausea/Vomiting Levofloxacin/Dextrose 500 mg/ (Premix) 100 mls @ 100 mls/hr IV Q48H [facility] Last Admin: 12/05/16 20:19 Dose: 100 mls/hr Piperacillin Sod/Tazobactam (Sod 4.5 gm/ Sodium Chloride) 100 mls @ 25 mls/hr IV Q12H [facility] Last Admin: 12/07/16 14:02 Dose: 25 mls/hr Insulin Aspart (Novolog) 12 unit SUBCUT TIDAC [facility] Last Admin: 12/07/16 11:51 Dose: 13 units Insulin Detemir (Levemir) 12 unit SUBCUT BEDTIME [facility] Last Admin: 12/06/16 21:29 Dose: 12 units Lactulose (Cephulac) 30 gm PO QID [facility] Last Admin: 12/07/16 12:28 Dose: 30 gm Lorazepam (Ativan) 0.5 mg IV Q6H PRN PRN Reason: Anxiety Metoprolol Tartrate (Lopressor) 5 mg IVPUSH Q4H PRN PRN Reason: Tachycardia Morphine Sulfate (Morphine) 1 mg IVPUSH Q4H PRN PRN Reason: Pain (severe 7-10) Stop: 12/07/16 23:26 Ondansetron HCl (Zofran) 4 mg IV Q6H PRN PRN Reason: Nausea/Vomiting Ondansetron HCl (Zofran Odt) 4 mg PO .EVERY 6 HOURS PRN PRN Reason: Nausea Pantoprazole Sodium (Protonix) 40 mg PO DAILY@0800 [facility] Last Admin: 12/07/16 09:06 Dose: 40 mg Potassium Chloride (Klor-Con M20) 20 meq PO DAILY [facility] Last Admin: 12/07/16 09:06 Dose: 20 meq Rifaximin (Xifaxan) 550 mg PO BID [facility] Last Admin: 12/07/16 09:07 Dose: 550 mg Salsalate (Disalcid) 500 mg PO ASDIRECTED PRN PRN Reason: Headache Senna/Docusate Sodium (Senna Plus) 1 tab PO BID PRN PRN Reason: Constipation Sertraline HCl (Zoloft) 50 mg PO DAILY [facility] Last Admin: 12/07/16 09:07 Dose: 50 mg Sodium Chloride (Saline Flush) 10 ml FLUSH ASDIRECTED PRN PRN Reason: Keep Vein Open Last Admin: 12/03/16 19:45 Dose: 10 ml Sodium Chloride (Saline Flush) 10 ml FLUSH ASDIRECTED PRN PRN Reason: Keep Vein Open Discontinued Medications Flunisolide (Nasalide Nasal [place]) 0 ml NASBOTH Q12H [facility] Last Admin: 12/05/16 12:50 Dose: Not Given Furosemide (Lasix) 40 mg IVPUSH NOW ONE Stop: 12/03/16 19:37 Last Admin: 12/03/16 19:45 Dose: 40 mg Furosemide 100 mg/ Sodium (Chloride) 100 mls @ 3 mls/hr IV TITRATE [facility] PRN Reason: Protocol Last Infusion: 12/04/16 16:50 Dose: 3 mls/hr Levofloxacin/Dextrose 250 mg/ (Premix) 50 mls @ 50 mls/hr IV ONETIME ONE Stop: 12/04/16 02:29 Last Admin: 12/04/16 01:35 Dose: 50 mls/hr Sodium Chloride (Normal Saline) Confirm Administered Dose 250 mls @ as directed .ROUTE .STK-MED ONE Stop: 12/04/16 01:21 Last Admin: 12/04/16 01:35 Dose: 10 ml Piperacillin Sod/Tazobactam (Sod 4.5 gm/ Sodium Chloride) 100 mls @ 200 mls/hr IV ONETIME ONE Stop: 12/04/16 13:29 Last Admin: 12/04/16 14:28 Dose: 200 mls/hr Piperacillin Sod/Tazobactam (Sod 4.5 gm/ Sodium Chloride) 100 mls @ 25 mls/hr IV Q12H [facility] Last Admin: 12/04/16 22:21 Dose: Not Given Sodium Chloride (Normal Saline) 250 mls @ 10 mls/hr IV ASDIRECTED [facility] Last Admin: 12/05/16 00:18 Dose: 10 mls/hr Lactulose (Cephulac) 30 gm PO TID [facility] Magnesium Sulfate (Pharmacy To Dose - Magnesium Replacement) 1 dose .XX ASDIRECTED [facility] Potassium Chloride (Pharmacy To Dose - Potassium Replacement) 1 dose .XX ASDIRECTED [facility] - Exam Quality Assessment: supplemental oxygen, DVT prophylaxis General: alert, oriented, cooperative, no acute distress HEENT: Pupils equal, Pupils reactive, EOMI Neck: supple, trachea midline Lungs: Decreased breath sounds, Rhonchi Cardiovascular: Regular Rate Abdomen: bowel sounds present, soft, no tenderness, no distension (Male) Exam: Deferred Back Exam: normal inspection Extremities: normal pulses Skin: warm Neurological: no new focal deficit Psy/Mental Status: alert, normal affect, normal mood - Problem List Review Problem List Initiated/Reviewed/Updated: Yes - Plan Plan:: Assessment/Plan: Acute: Multi-focal PNA - Patchy areas of alveolar density within both upper lungs/Areas of consolidation within both lower lungs - Continue IV Levaquin and Zosyn pharmacy to renally dose - Incentive spirometry as directed Acute Congestive Heart Failure - Likely induced but ESLD - Diagnosed recently in [place] - Awaiting 2D Echo report from [place] - Discontinue Lasix drip at low rate due reduced renal functional - HF protocol: salt restrictions, daily weights, Is/Os - Resume home diuretic dose B/L Pleural Effusions S/p Thoracentesis - Lasix drip at low rate of 3 mls/hr - Supplemental O2 - CT scan: Small-Moderate Size R>L - Diagnostic and Therapeutic thoracentesis - 1050 ml of pleural fluid removed Generalized Weakness - 2/2 above - Continue PT/OT; appears to be at baseline. 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
[2016-12-07] MEDS: Levofloxacin/Dextrose 5%-Water 500 MG in Premix Bag 1 BAG IV SCH (22:17)
[2016-12-07] MEDS: Famotidine 20 MG Tab PO SCH (22:18)
[2016-12-07] MEDS: Insulin Detemir 100 Units/ML 3 ML Pen SUBCUT SCH (22:19)
[2016-12-08] MEDS: Piperacillin/Tazobactam 4.5 GM in Sodium Chloride 0.9% 100 ML IV SCH (04:16)
[2016-12-08] MEDS ORDERED: 50% Dextrose in Water 50 ML Syringe ONE (06:54)
[2016-12-08] MEDS ORDERED: 50% Dextrose in Water 50 ML Syringe IVPUSH PRN ×2 (06:55→07:00)
--- NOTE | 2016-12-08 07:34 | PCM.DCSUM1 ---
<Ana Mayen M - Last Filed: 12/08/16 14:49> Discharge Summary - Hospital Course Free Text/Narrative:: See above for details, LOS exceeded 96 hours. - Discharge Data Discharge Disposition: DC/Tfer to [facility] Condition: Good - Patient Summary/Data Consults: Consultations 12/03/16 23:27 Consult to Case Management [CONS] Routine Consult to Screen Printer [CONS] Routine Consult to Spiritual Care [CONS] Routine OT Evaluation and Treatment [CONS] Routine PT Evaluation and Treatment [CONS] Routine Respiratory Care Assess and Treatment [CONS] Routine 12/04/16 17:30 Consult to Dietary [Consult to Emergency Communications Dispatcher] [CONS] Routine - Discharge Plan Prescriptions/Med Rec: Lactulose [Cephulac] 30 gm PO QID #1 bottle Levofloxacin [Levaquin] 500 mg PO Q48H #6 tablet Home Medications: Home Meds Furosemide [Lasix] 80 mg PO DAILY PRN 09/11/14 [History] LORazepam [Ativan] 0.5 mg PO BEDTIME 09/11/14 [History] Pantoprazole [Protonix] 40 mg PO DAILY 09/11/14 [History] Fluticasone Propionate [Flonase] 2 spray NS DAILY PRN 12/10/14 [History] Insulin Glarg,Human.Rec.Analog [Lantus] 10 unit SUBCUT BEDTIME 12/10/14 [History ] Potassium Chloride 20 meq PO DAILY 12/10/14 [History] Insulin Aspart [NovoLOG] 12 units SUBCUT TIDAC 04/15/15 [History] Rifaximin [Xifaxan] 550 mg PO BID 04/15/15 [History] Salsalate 500 mg PO ASDIRECTED PRN 04/15/15 [History] Sertraline HCl 50 mg PO DAILY 04/15/15 [History] Ranitidine [Zantac] 150 mg PO BEDTIME 11/06/15 [History] Ferrous Sulfate 325 mg PO TID 12/03/16 [History] Ondansetron [IJD: Ondansetron ODT] 4 mg PO .EVERY 6 HOURS PRN 12/03/16 [History] hydrALAZINE [Apresoline] 25 mg PO Q12HR 12/03/16 [History] Lactulose [Cephulac] 30 gm PO QID #1 bottle 12/08/16 [Rx] Levofloxacin [Levaquin] 500 mg PO Q48H #6 tablet 12/08/16 [Rx] Patient Handouts: Thoracentesis, Thoracentesis, Care After, Heart Failure, Easy -to-Read, Chronic Kidney Disease, Managing Your High Blood Pressure, Hypertension Forms: ED Department Discharge Referrals: Rogelio Lopes MD [Primary Care Provider] - - Patient Data Vitals - Most Recent: Last Vital Signs Temp 36.8 C 12/08/16 07:30 Pulse 66 12/08/16 07:30 Resp 24 H 12/08/16 07:30 BP 139/65 12/08/16 08:22 Pulse Ox 98 12/08/16 07:30 I&O - Last 24 hours: Intake & Output 12/07/16 12/08/16 12/08/16 22:59 06:59 14:59 Intake Total 2120 1210 170 Balance 2120 1210 170 Lab Results - Last 24 hrs: Laboratory Results - last 24 hr 12/07/16 12/07/16 12/08/16 Range/Units 17:24 20:21 06:50 POC Glucose 144 H 199 H 59 L (80-115) mg/dL 12/08/16 Range/Units 07:21 POC Glucose 133 H (80-115) mg/dL TYESHA Results - Last 24 hrs: Microbiology 12/04/16 12:55 Gram Stain - Final Thoracentesis Fluid - Right Body Fluid Culture - Preliminary NO GROWTH AFTER 4 DAYS Med Orders - Current: Current Medications Discontinued Medications Acetaminophen (Tylenol) 650 mg PO Q4H PRN PRN Reason: Pain (Mild 1-3)/fever Hydrocodone Bitart/Acetaminophen ([place] 325-5 Mg) 1 tab PO Q4H PRN PRN Reason: Pain (moderate 4-6) Albuterol/Ipratropium (Duoneb 3.0-0.5 Mg/3 Ml) 3 ml NEB Q4H PRN PRN Reason: Shortness Of Breath/wheezing Last Admin: 12/04/16 05:11 Dose: 3 ml Bisacodyl (Dulcolax) 5 mg PO DAILY PRN PRN Reason: Constipation Dextrose/Water (Dextrose 50% In Water) Confirm Administered Dose 50 ml .ROUTE .STK-MED ONE Stop: 12/08/16 06:55 Last Admin: 12/08/16 06:57 Dose: 50 ml Dextrose/Water (Dextrose 50% In Water) 50 ml IVPUSH ASDIRECTED PRN PRN Reason: Hypoglycemia Dextrose/Water (Dextrose 50% In Water) 50 ml IVPUSH TIDAC PRN PRN Reason: Hypoglycemia Famotidine (Pepcid) 20 mg PO BEDTIME [facility] Last Admin: 12/07/16 22:18 Dose: 20 mg Ferrous Sulfate (Ferrous Sulfate) 325 mg PO TID [facility] Last Admin: 12/08/16 08:22 Dose: 325 mg Flunisolide (Nasalide Nasal [place]) 0 ml NASBOTH Q12H [facility] Last Admin: 12/05/16 12:50 Dose: Not Given Flunisolide (Nasalide Nasal [place]) 0 ml NASBOTH BID [facility] Last Admin: 12/08/16 08:29 Dose: Not Given Furosemide (Lasix) 40 mg IVPUSH NOW ONE Stop: 12/03/16 19:37 Last Admin: 12/03/16 19:45 Dose: 40 mg Furosemide (Lasix) 80 mg PO DAILY PRN PRN Reason: Other Last Admin: 12/07/16 05:46 Dose: 80 mg Hydralazine HCl (Apresoline) 25 mg PO Q12HR [facility] Last Admin: 12/08/16 08:22 Dose: 25 mg Hydralazine HCl (Apresoline) 20 mg IVPUSH Q4H PRN PRN Reason: Hypertension Last Admin: 12/04/16 15:44 Dose: 20 mg Promethazine HCl 12.5 mg/ (Sodium Chloride) 50.5 mls @ 100 mls/hr IV Q6H PRN PRN Reason: Nausea/Vomiting Furosemide 100 mg/ Sodium (Chloride) 100 mls @ 3 mls/hr IV TITRATE [facility] PRN Reason: Protocol Last Infusion: 12/04/16 16:50 Dose: 3 mls/hr Levofloxacin/Dextrose 250 mg/ (Premix) 50 mls @ 50 mls/hr IV ONETIME ONE Stop: 12/04/16 02:29 Last Admin: 12/04/16 01:35 Dose: 50 mls/hr Levofloxacin/Dextrose 500 mg/ (Premix) 100 mls @ 100 mls/hr IV Q48H [facility] Last Admin: 12/07/16 22:17 Dose: 100 mls/hr Sodium Chloride (Normal Saline) Confirm Administered Dose 250 mls @ as directed .ROUTE .STK-MED ONE Stop: 12/04/16 01:21 Last Admin: 12/04/16 01:35 Dose: 10 ml Piperacillin Sod/Tazobactam (Sod 4.5 gm/ Sodium Chloride) 100 mls @ 200 mls/hr IV ONETIME ONE Stop: 12/04/16 13:29 Last Admin: 12/04/16 14:28 Dose: 200 mls/hr Piperacillin Sod/Tazobactam (Sod 4.5 gm/ Sodium Chloride) 100 mls @ 25 mls/hr IV Q12H [facility] Last Admin: 12/04/16 22:21 Dose: Not Given Piperacillin Sod/Tazobactam (Sod 4.5 gm/ Sodium Chloride) 100 mls @ 25 mls/hr IV Q12H [facility] Last Admin: 12/08/16 04:16 Dose: 25 mls/hr Sodium Chloride (Normal Saline) 250 mls @ 10 mls/hr IV ASDIRECTED [facility] Last Admin: 12/05/16 00:18 Dose: 10 mls/hr Insulin Aspart (Novolog) 12 unit SUBCUT TIDAC [facility] Last Admin: 12/08/16 08:41 Dose: Not Given Insulin Detemir (Levemir) 12 unit SUBCUT BEDTIME [facility] Last Admin: 12/07/16 22:19 Dose: 12 units Lactulose (Cephulac) 30 gm PO TID [facility] Lactulose (Cephulac) 30 gm PO QID [facility] Last Admin: 12/08/16 08:21 Dose: 30 gm Lorazepam (Ativan) 0.5 mg IV Q6H PRN PRN Reason: Anxiety Magnesium Sulfate (Pharmacy To Dose - Magnesium Replacement) 1 dose .XX ASDIRECTED [facility] Metoprolol Tartrate (Lopressor) 5 mg IVPUSH Q4H PRN PRN Reason: Tachycardia Morphine Sulfate (Morphine) 1 mg IVPUSH Q4H PRN PRN Reason: Pain (severe 7-10) Stop: 12/07/16 23:26 Ondansetron HCl (Zofran) 4 mg IV Q6H PRN PRN Reason: Nausea/Vomiting Ondansetron HCl (Zofran Odt) 4 mg PO .EVERY 6 HOURS PRN PRN Reason: Nausea Pantoprazole Sodium (Protonix) 40 mg PO DAILY@0800 [facility] Last Admin: 12/08/16 08:21 Dose: 40 mg Potassium Chloride (Klor-Con M20) 20 meq PO DAILY [facility] Last Admin: 12/08/16 08:21 Dose: 20 meq Potassium Chloride (Pharmacy To Dose - Potassium Replacement) 1 dose .XX ASDIRECTED [facility] Rifaximin (Xifaxan) 550 mg PO BID [facility] Last Admin: 12/08/16 10:08 Dose: 550 mg Salsalate (Disalcid) 500 mg PO ASDIRECTED PRN PRN Reason: Headache Senna/Docusate Sodium (Senna Plus) 1 tab PO BID PRN PRN Reason: Constipation Sertraline HCl (Zoloft) 50 mg PO DAILY [facility] Last Admin: 12/08/16 08:22 Dose: 50 mg Sodium Chloride (Saline Flush) 10 ml FLUSH ASDIRECTED PRN PRN Reason: Keep Vein Open Last Admin: 12/03/16 19:45 Dose: 10 ml Sodium Chloride (Saline Flush) 10 ml FLUSH ASDIRECTED PRN PRN Reason: Keep Vein Open *Q Meaningful Use (DIS) - VTE *Q VTE Criteria *Q: - Stroke *Q Stroke Criteria *Q: - AMI *Q AMI Criteria *Q: <Vanessa Briones M - Last Filed: 12/09/16 12:13> Discharge Summary - Hospital Course Free Text/Narrative:: This is a 71 elderly white male with past medical hx/o DM2, GERD, CKD Stage 4-5 , DM2, HF with unknown EF, Anemia, BPH, Urinary Incontinence, Hx/o Esophageal Varices S/p Banding, Anxiety and Depression, Speech Problem, Hypoalbuminemia, ANDREIA on CPAP and Obesity who comes in with c/o reduced appetite, fatigue and generalized weakness for over a week now. He admits to increasing SOB with a wet sounding chest. 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 His most recent hospitalization was in August (, ). At that time, he was diagnosed with heart failure with unknown ejection fraction. His initial work up in ED shows a CBC remarkable for WBC 11.26, Hgb 8.2 Hct 25.4 and Neutrophils 83%. His chemistry is significant for Cl 111, BUN 52, Cr 4.8, BS 109, Total Bili 1.4, AST 134, troponin 0.668, CRP 4.5, Total Protein 6 and Albumin 2. His UA is not impressive for UTI. His CXR shows diffuse pulmonary congestion with pleural effusions. He is DNR/DNI. Hospitalist service is consulted for admission He was admitted; treated for RLL pneumonia with levaquin and zosyn IV. He had CHF exacerbation likely related to ESLD, JOSUE in nature. He was started on lasix drip which was titrated to IVP lasix and then transitioned to oral diuretic doses. He had bilateral pleural effusions which persisted, rt >lt. Dr. Brown performed rt sided thoracentesis with 1050cc of fluid returned, analysis of fluid was negative/unremarkable. Respiratory symptoms improved. Lactulise dose was increased from TID to QID as ammonia levels were increased. Chronic anemia was stable with hgb from 8.5-8.1 during his stay. CKD was stable with creatinines at 3.5 range. He worked with PT/OT for strengthening. He is discharged back to custodial with PT/OT to continue. He will follow up with his PCP, Dr. Lopes within 5-7 days of discharge with recheck of labs at that time. - Discharge Data Discharge Date: 12/08/16 (admit date 12/03/16) - Patient Summary/Data Operative Procedure(s) Performed: Rt sided thoracentesis performed by Dr. Brown with 1050cc fluid returned- fluid aspirate analysis all unremarkable Complications: None Consults: Consultations 12/03/16 23:27 Consult to Case Management [CONS] Routine Consult to Screen Printer [CONS] Routine Consult to Spiritual Care [CONS] Routine OT Evaluation and Treatment [CONS] Routine PT Evaluation and Treatment [CONS] Routine Respiratory Care Assess and Treatment [CONS] Routine 12/04/16 17:30 Consult to Dietary [Consult to Emergency Communications Dispatcher] [CONS] Routine Labs Pending at D/C: None Recommended Follow-up Testing/Procedures: Follow up with PCP within 5-7 days of discharge with labs prior, CBC, BMP and ammonia levels. Planned Operative Procedure(s) after DC: None Hospital Course: As above - Patient Instructions Diet: Heart Healthy Diet, Low Sodium, Diabetic Diet Activity: As Tolerated (PT/OT) Driving: Do Not Drive Showering/Bathing: May Shower Notify Provider of: Fever, Increased Pain, Nausea and/or Vomiting - Discharge Summary/Plan Comment DC Time >30 min.: Yes (40 min) - General Info Date of Service: 12/09/16 Admission Dx/Problem (Free Text: Admission Diagnosis/Problem Admission Diagnosis/Problem Congestive heart failure Functional Status: Reports: pain controlled, tolerating diet, ambulating, urinating. Denies: new symptoms - Review of Systems General: Reports: Weakness HEENT: Reports: no symptoms Pulmonary: Reports: no symptoms Cardiovascular: Reports: No Symptoms Gastrointestinal: Reports: No symptoms Genitourinary: Reports: no symptoms Musculoskeletal: Reports: no symptoms Neurological: Reports: No Symptoms Psychiatric: Reports: no symptoms - Patient Data Vitals - Most Recent: Last Vital Signs Temp 98.2 F 12/08/16 03:56 Pulse 66 12/08/16 03:56 Resp 20 12/08/16 03:56 BP 134/76 12/08/16 03:56 Pulse Ox 94 L 12/08/16 03:56 Weight - Most Recent: 260 lb 8 oz I&O - Last 24 hours: Intake & Output 12/07/16 12/08/16 12/08/16 22:59 06:59 14:59 Intake Total 2120 1210 Balance 2120 1210 Lab Results - Last 24 hrs: Laboratory Results - last 24 hr 12/07/16 12/07/16 12/07/16 Range/Units 08:53 08:53 11:28 WBC 10.30 H (4.23-9.07) K/mm3 RBC 2.97 L (4.63-6.08) M/mm3 Hgb 8.8 L (13.7-17.5) gm/L Hct 27.2 L (40.1-51.0) % MCV 91.6 (79.0-92.2) fl MCH 29.6 (25.7-32.2) pg MCHC 32.4 (32.2-35.5) g/dl RDW Std Deviation 54.4 H (35.1-43.9) fL Plt Count 196 (163-337) K/mm3 MPV 9.1 L (9.4-12.3) fl Neut % (Auto) 72.7 H (34.0-67.9) % Lymph % (Auto) 9.2 L (21.8-53.1) % [place] % (Auto) 12.4 H (5.3-12.2) % Eos % (Auto) 4.3 (0.8-7.0) Baso % (Auto) 0.6 (0.1-1.2) % Neut # (Auto) 7.49 H (1.78-5.38) K/mm3 Lymph # (Auto) 0.95 L (1.32-3.57) K/mm3 [place] # (Auto) 1.28 H (0.30-0.82) K/mm3 Eos # (Auto) 0.44 (0.04-0.54) K/mm3 Baso # (Auto) 0.06 (0.01-0.08) K/mm3 Manual Slide Review Abnormal smear Sodium 143 (136-145) mEq/L Potassium 4.9 (3.5-5.1) mEq/L Chloride 112 H (98-107) mEq/L Carbon Dioxide 20 L (21-32) mEq/L Anion Gap 15.9 H (5-15) BUN 70 H (7-18) mg/dL Creatinine 5.5 H (0.7-1.3) mg/dL Est Cr Clr Drug Dosing 13.72 mL/min Estimated GFR (MDRD) 10 (>60) mL/min BUN/Creatinine Ratio 12.7 L (14-18) Glucose 126 H (80-115) mg/dL POC Glucose 149 H (80-115) mg/dL Calcium 8.1 L (8.5-10.1) mg/dL Magnesium 2.4 (1.8-2.4) mg/dl Total Bilirubin 1.0 (0.2-1.0) mg/dL AST 146 H (15-37) U/L ALT 60 (16-63) U/L Alkaline Phosphatase 102 (46-116) U/L Total Protein 5.8 L (6.4-8.2) g/dl Albumin 1.6 L (3.4-5.0) g/dl Globulin 4.2 gm/dL Albumin/Globulin Ratio 0.4 L (1-2) 12/07/16 12/07/16 12/08/16 Range/Units 17:24 20:21 06:50 WBC (4.23-9.07) K/mm3 RBC (4.63-6.08) M/mm3 Hgb (13.7-17.5) gm/L Hct (40.1-51.0) % MCV (79.0-92.2) fl MCH (25.7-32.2) pg MCHC (32.2-35.5) g/dl RDW Std Deviation (35.1-43.9) fL Plt Count (163-337) K/mm3 MPV (9.4-12.3) fl Neut % (Auto) (34.0-67.9) % Lymph % (Auto) (21.8-53.1) % [place] % (Auto) (5.3-12.2) % Eos % (Auto) (0.8-7.0) Baso % (Auto) (0.1-1.2) % Neut # (Auto) (1.78-5.38) K/mm3 Lymph # (Auto) (1.32-3.57) K/mm3 [place] # (Auto) (0.30-0.82) K/mm3 Eos # (Auto) (0.04-0.54) K/mm3 Baso # (Auto) (0.01-0.08) K/mm3 Manual Slide Review Sodium (136-145) mEq/L Potassium (3.5-5.1) mEq/L Chloride (98-107) mEq/L Carbon Dioxide (21-32) mEq/L Anion Gap (5-15) BUN (7-18) mg/dL Creatinine (0.7-1.3) mg/dL Est Cr Clr Drug Dosing mL/min Estimated GFR (MDRD) (>60) mL/min BUN/Creatinine Ratio (14-18) Glucose (80-115) mg/dL POC Glucose 144 H 199 H 59 L (80-115) mg/dL Calcium (8.5-10.1) mg/dL Magnesium (1.8-2.4) mg/dl Total Bilirubin (0.2-1.0) mg/dL AST (15-37) U/L ALT (16-63) U/L Alkaline Phosphatase (46-116) U/L Total Protein (6.4-8.2) g/dl Albumin (3.4-5.0) g/dl Globulin gm/dL Albumin/Globulin Ratio (1-2) 12/08/16 Range/Units 07:21 WBC (4.23-9.07) K/mm3 RBC (4.63-6.08) M/mm3 Hgb (13.7-17.5) gm/L Hct (40.1-51.0) % MCV (79.0-92.2) fl MCH (25.7-32.2) pg MCHC (32.2-35.5) g/dl RDW Std Deviation (35.1-43.9) fL Plt Count (163-337) K/mm3 MPV (9.4-12.3) fl Neut % (Auto) (34.0-67.9) % Lymph % (Auto) (21.8-53.1) % [place] % (Auto) (5.3-12.2) % Eos % (Auto) (0.8-7.0) Baso % (Auto) (0.1-1.2) % Neut # (Auto) (1.78-5.38) K/mm3 Lymph # (Auto) (1.32-3.57) K/mm3 [place] # (Auto) (0.30-0.82) K/mm3 Eos # (Auto) (0.04-0.54) K/mm3 Baso # (Auto) (0.01-0.08) K/mm3 Manual Slide Review Sodium (136-145) mEq/L Potassium (3.5-5.1) mEq/L Chloride (98-107) mEq/L Carbon Dioxide (21-32) mEq/L Anion Gap (5-15) BUN (7-18) mg/dL Creatinine (0.7-1.3) mg/dL Est Cr Clr Drug Dosing mL/min Estimated GFR (MDRD) (>60) mL/min BUN/Creatinine Ratio (14-18) Glucose (80-115) mg/dL POC Glucose 133 H (80-115) mg/dL Calcium (8.5-10.1) mg/dL Magnesium (1.8-2.4) mg/dl Total Bilirubin (0.2-1.0) mg/dL AST (15-37) U/L ALT (16-63) U/L Alkaline Phosphatase (46-116) U/L Total Protein (6.4-8.2) g/dl Albumin (3.4-5.0) g/dl Globulin gm/dL Albumin/Globulin Ratio (1-2) TYESHA Results - Last 24 hrs: Microbiology 12/04/16 12:55 Gram Stain - Final Thoracentesis Fluid - Right Body Fluid Culture - Preliminary NO GROWTH AFTER 3 DAYS Med Orders - Current: Current Medications Acetaminophen (Tylenol) 650 mg PO Q4H PRN PRN Reason: Pain (Mild 1-3)/fever Acetaminophen/Hydrocodone Bitart ([place] 325-5 Mg) 1 tab PO Q4H PRN PRN Reason: Pain (moderate 4-6) Albuterol/Ipratropium (Duoneb 3.0-0.5 Mg/3 Ml) 3 ml NEB Q4H PRN PRN Reason: Shortness Of Breath/wheezing Last Admin: 12/04/16 05:11 Dose: 3 ml Bisacodyl (Dulcolax) 5 mg PO DAILY PRN PRN Reason: Constipation Dextrose/Water (Dextrose 50% In Water) 50 ml IVPUSH TIDAC PRN PRN Reason: Hypoglycemia Famotidine (Pepcid) 20 mg PO BEDTIME [facility] Last Admin: 12/07/16 22:18 Dose: 20 mg Ferrous Sulfate (Ferrous Sulfate) 325 mg PO TID [facility] Last Admin: 12/07/16 22:18 Dose: 325 mg Flunisolide (Nasalide Nasal [place]) 0 ml NASBOTH BID [facility] Last Admin: 12/07/16 22:17 Dose: 2 sprays Furosemide (Lasix) 80 mg PO DAILY PRN PRN Reason: Other Last Admin: 12/07/16 05:46 Dose: 80 mg Hydralazine HCl (Apresoline) 25 mg PO Q12HR [facility] Last Admin: 12/07/16 22:18 Dose: 25 mg Hydralazine HCl (Apresoline) 20 mg IVPUSH Q4H PRN PRN Reason: Hypertension Last Admin: 12/04/16 15:44 Dose: 20 mg Promethazine HCl 12.5 mg/ (Sodium Chloride) 50.5 mls @ 100 mls/hr IV Q6H PRN PRN Reason: Nausea/Vomiting Levofloxacin/Dextrose 500 mg/ (Premix) 100 mls @ 100 mls/hr IV Q48H [facility] Last Admin: 12/07/16 22:17 Dose: 100 mls/hr Piperacillin Sod/Tazobactam (Sod 4.5 gm/ Sodium Chloride) 100 mls @ 25 mls/hr IV Q12H [facility] Last Admin: 12/08/16 04:16 Dose: 25 mls/hr Insulin Aspart (Novolog) 12 unit SUBCUT TIDAC [facility] Last Admin: 12/07/16 18:03 Dose: 13 units Insulin Detemir (Levemir) 12 unit SUBCUT BEDTIME [facility] Last Admin: 12/07/16 22:19 Dose: 12 units Lactulose (Cephulac) 30 gm PO QID [facility] Last Admin: 12/07/16 22:18 Dose: 30 gm Lorazepam (Ativan) 0.5 mg IV Q6H PRN PRN Reason: Anxiety Metoprolol Tartrate (Lopressor) 5 mg IVPUSH Q4H PRN PRN Reason: Tachycardia Ondansetron HCl (Zofran) 4 mg IV Q6H PRN PRN Reason: Nausea/Vomiting Ondansetron HCl (Zofran Odt) 4 mg PO .EVERY 6 HOURS PRN PRN Reason: Nausea Pantoprazole Sodium (Protonix) 40 mg PO DAILY@0800 [facility] Last Admin: 12/07/16 09:06 Dose: 40 mg Potassium Chloride (Klor-Con M20) 20 meq PO DAILY [facility] Last Admin: 12/07/16 09:06 Dose: 20 meq Rifaximin (Xifaxan) 550 mg PO BID [facility] Last Admin: 12/07/16 22:20 Dose: 550 mg Salsalate (Disalcid) 500 mg PO ASDIRECTED PRN PRN Reason: Headache Senna/Docusate Sodium (Senna Plus) 1 tab PO BID PRN PRN Reason: Constipation Sertraline HCl (Zoloft) 50 mg PO DAILY [facility] Last Admin: 12/07/16 09:07 Dose: 50 mg Sodium Chloride (Saline Flush) 10 ml FLUSH ASDIRECTED PRN PRN Reason: Keep Vein Open Last Admin: 12/03/16 19:45 Dose: 10 ml Sodium Chloride (Saline Flush) 10 ml FLUSH ASDIRECTED PRN PRN Reason: Keep Vein Open Discontinued Medications Dextrose/Water (Dextrose 50% In Water) Confirm Administered Dose 50 ml .ROUTE .[email or web address]MED ONE Stop: 12/08/16 06:55 Last Admin: 12/08/16 06:57 Dose: 50 ml Dextrose/Water (Dextrose 50% In Water) 50 ml IVPUSH ASDIRECTED PRN PRN Reason: Hypoglycemia Flunisolide (Nasalide Nasal [place]) 0 ml NASBOTH Q12H [facility] Last Admin: 12/05/16 12:50 Dose: Not Given Furosemide (Lasix) 40 mg IVPUSH NOW ONE Stop: 12/03/16 19:37 Last Admin: 12/03/16 19:45 Dose: 40 mg Furosemide 100 mg/ Sodium (Chloride) 100 mls @ 3 mls/hr IV TITRATE [facility] PRN Reason: Protocol Last Infusion: 12/04/16 16:50 Dose: 3 mls/hr Levofloxacin/Dextrose 250 mg/ (Premix) 50 mls @ 50 mls/hr IV ONETIME ONE Stop: 12/04/16 02:29 Last Admin: 12/04/16 01:35 Dose: 50 mls/hr Sodium Chloride (Normal Saline) Confirm Administered Dose 250 mls @ as directed .ROUTE .STK-MED ONE Stop: 12/04/16 01:21 Last Admin: 12/04/16 01:35 Dose: 10 ml Piperacillin Sod/Tazobactam (Sod 4.5 gm/ Sodium Chloride) 100 mls @ 200 mls/hr IV ONETIME ONE Stop: 12/04/16 13:29 Last Admin: 12/04/16 14:28 Dose: 200 mls/hr Piperacillin Sod/Tazobactam (Sod 4.5 gm/ Sodium Chloride) 100 mls @ 25 mls/hr IV Q12H [facility] Last Admin: 12/04/16 22:21 Dose: Not Given Sodium Chloride (Normal Saline) 250 mls @ 10 mls/hr IV ASDIRECTED [facility] Last Admin: 12/05/16 00:18 Dose: 10 mls/hr Lactulose (Cephulac) 30 gm PO TID [facility] Magnesium Sulfate (Pharmacy To Dose - Magnesium Replacement) 1 dose .XX ASDIRECTED [facility] Morphine Sulfate (Morphine) 1 mg IVPUSH Q4H PRN PRN Reason: Pain (severe 7-10) Stop: 12/07/16 23:26 Potassium Chloride (Pharmacy To Dose - Potassium Replacement) 1 dose .XX ASDIRECTED [facility] - Exam General: Reports: alert, cooperative, no acute distress HEENT: Reports: Pupils equal, Pupils reactive, EOMI, Mucous membr. moist/pink Neck: Reports: supple Lungs: Reports: Normal respiratory effort, Decreased breath sounds (to bases) Cardiovascular: Reports: Regular Rate, Regular Rhythm Abdomen: Reports: bowel sounds present (Male) Exam: Deferred Rectal (Males) Exam: Deferred Extremities: Reports: edema Psy/Mental Status: Reports: alert, normal affect, normal mood *Q Meaningful Use (DIS) - VTE *Q VTE Criteria *Q: - Stroke *Q Stroke Criteria *Q: - AMI *Q AMI Criteria *Q:
[2016-12-08] MEDS: Pantoprazole 40 MG Tab.CR PO SCH (08:21)
[2016-12-08] MEDS: Lactulose Soln 10 GM/15 ML 30 ML UD Cup PO SCH (08:21)
[2016-12-08] MEDS: Potassium Chloride 20 MEQ Tab.ER PO SCH (08:21)
[2016-12-08] MEDS: Sertraline 50 MG Tab PO SCH (08:22)
[2016-12-08] MEDS: hydrALAZINE 25 MG Tab PO SCH (08:22)
[2016-12-08] MEDS: Ferrous Sulfate 325 MG Tab PO SCH (08:22)
[2016-12-08 08:25] VITALS: BP 139/65
[2016-12-08] MEDS: Insulin Aspart 100 Units/ML 3 ML Pen SUBCUT SCH (08:41)
--- NOTE | 2016-12-08 09:59 | CR ---
Chest: Two views of the chest were obtained. Comparison: Previous chest x-ray of 12/05/16. Bilateral pleural effusions are seen larger in size on the right side. Findings on the frontal view remains stable. Pulmonary vessels are mildly congested which appear stable. Heart is enlarged. Bony structures are unremarkable for the patient's age. Impression: 1. Findings as described above. No significant change is seen from prior chest x-ray. Diagnostic code #3
[2016-12-08] MEDS: Rifaximin 550 MG Tab PO SCH (10:08)
== END 2016-12-08 11:00 | DRG 291 ==
LOC: JD.ED 18:18 → JD.MS 21:40
PROVIDERS: ADMIT Internal Medicine; ATTEND Internal Medicine
PROC: 0W993ZX Drainage of Right Pleural Cavity, Percutaneous Approach, Diagnostic (ICD-10-PCS; principal; 2016-12-04)
DX: I13.0 Hypertensive heart and chronic kidney disease with heart failure and stage 1 through stage 4 chronic kidney disease, or unspecified chronic kidney disease (principal); J18.9 Pneumonia, unspecified organism; N18.4 Chronic kidney disease, stage 4 (severe); J90 Pleural effusion, not elsewhere classified; I50.9 Heart failure, unspecified; K72.90 Hepatic failure, unspecified without coma; R53.1 Weakness; K74.69 Other cirrhosis of liver; R79.89 Other specified abnormal findings of blood chemistry; E11.9 Type 2 diabetes mellitus without complications; Z79.4 Long term (current) use of insulin; K21.9 Gastro-esophageal reflux disease without esophagitis; N40.0 Benign prostatic hyperplasia without lower urinary tract symptoms; R32 Unspecified urinary incontinence; F41.8 Other specified anxiety disorders; D64.9 Anemia, unspecified; G47.33 Obstructive sleep apnea (adult) (pediatric); R47.9 Unspecified speech disturbances; H91.90 Unspecified hearing loss, unspecified ear; Z66 Do not resuscitate; Z79.899 Other long term (current) drug therapy; Z88.8 Allergy status to other drugs, medicaments and biological substances; Z91.048 Other nonmedicinal substance allergy status
CPT/HCPCS: 32555; 36415; 71010; 71010-26; 71020; 71020-26; 71250; 71250-26; 76942; 80053; 81001; 82040; 82140; 82945; 82962; 83615; 83735; 83880; 83986; 84157; 84484; 85025; 86140; 87015; 87070; 87102; 87116; 87205; 87206; 87220; 87493; 87804; 88112; 88112-26; 88305; 88305-26; 89050; 93005; 94664; 94760; 94761; 96374; 97110-GO; 97110-GP; 97116-GP; 97162-GP; 97166-GO; 97530-GO; 97530-GP; 99284; 99285-25; A9270-GY; J0360; J1815-GY; J1940; J1956; J2543; J7030; J7050; J7060; P9612